=== PATIENT | male | born 1960 | race Caucasian/White ===

== ENCOUNTER 2021-03-02 10:50 | Inpatient (IN) | payer BC ==
[2021-03-02] MEDS ORDERED: SODIUM CHLORIDE 0.9% 1,000 ML IV STA (11:01)
[2021-03-02] MEDS ORDERED: ALBUTEROL HFA INHALER INHALATION STA (11:03)
--- NOTE | 2021-03-02 12:16 | XR ---
EXAMINATION TYPE: XR chest 2V DATE OF EXAM: 03/02/2021 COMPARISON: None HISTORY: 60 year-old male shortness of breath, difficulty breathing TECHNIQUE: AP and lateral views FINDINGS: Heart borderline enlarged. Diffuse bilateral airspace opacity, right greater than left. No pleural ef fusion. IMPRESSION: 1. Borderline cardiomegaly. 2. Diffuse bilateral airspace disease, right greater than left. No pleural effusion.
[2021-03-02 12:17] LABS: Basophils % (A) 0 %; Eosinophils % (A) 0 %; HCT 43.4 % (39.0-53.0); HGB 15.2 gm/dL (13.0-17.5); Hyperchromasia Slight; Lymphocytes # (A) 0.5 k/uL (1.0-4.8); Lymphocytes % (A) 5 %; MCH 28.3 pg (25.0-35.0); MCHC 34.9 g/dL (31.0-37.0); MCV 81.1 fL (80.0-100.0); Mean Platelet Volume 6.7; Monocytes # (A) 0.4 k/uL (0-1.0); Monocytes % (A) 5 %; Neutrophils # (A) 8.2 k/uL (1.3-7.7); Neutrophils % (A) 89 %; Platelet Count 177 k/uL (150-450); RBC 5.35 m/uL (4.30-5.90); RDW 12.4 % (11.5-15.5); WBC 9.2 k/uL (3.8-10.6)
--- NOTE | 2021-03-02 12:22 | ED ---
SOB HPI - General Chief Complaint: Shortness of Breath Stated Complaint: COVID+, SOB Time Seen by Provider: 03/02/21 11:00 Source: patient, EMS, RN notes reviewed Mode of arrival: EMS Limitations: no limitations - History of Present Illness Initial Comments: 60-year-old male who was diagnosed week ago with Covid 19 at the [facility] who presents by EMS with complaints of shortness of breath some delirium at home this morning. He had apparently a 55% pulse ox on room air and improved to about 85% on oxygen. Temperature 102 at home. Per paramedics his temperature is 100 today. He did have diminished breath sounds he also was apparently dusky per paramedics but is improved after improved oxygenation. The patient himself denies any chest pain at this time. MD Complaint: shortness of breath, cough - Related Data Home Medications Medication Instructions Recorded Confirmed No Known Home Medications 03/02/21 03/02/21 Allergies Allergy/AdvReac Type Severity Reaction Status Date / Time No Known Allergies Allergy Verified 03/02/21 11:53 Review of Systems ROS Statement: Those systems with pertinent positive or pertinent negative responses have been documented in the HPI. ROS Other: All systems not noted in ROS Statement are negative. Past Medical History Past Medical History: No Reported History History of Any Multi-Drug Resistant Organisms: None Reported Past Surgical History: Hernia Repair Past Psychological History: No Psychological Hx Reported Smoking Status: Former smoker Past Alcohol Use History: None Reported Past Drug Use History: None Reported General Exam - General Exam Comments Initial Comments: This is a well-developed well-nourished awake alert oriented 3 male Limitations: no limitations General appearance: alert, anxious, in distress Head exam: Present: atraumatic, normocephalic, normal inspection Eye exam: Present: normal appearance, PERRL, EOMI. Absent: scleral icterus, conjunctival injection, periorbital swelling ENT exam: Present: normal exam, mucous membranes moist Neck exam: Present: normal inspection, full ROM, other. Absent: tenderness, meningismus, lymphadenopathy Respiratory exam: Present: normal lung sounds bilaterally, wheezes, accessory muscle use (Stridor JVD or bruits some expiratory wheezes noted along with tachypnea). Absent: respiratory distress, rales, rhonchi, stridor Cardiovascular Exam: Present: regular rate, normal rhythm, normal heart sounds. Absent: systolic murmur, diastolic murmur, rubs, gallop, clicks GI/Abdominal exam: Present: soft, normal bowel sounds. Absent: distended, tenderness, guarding, rebound, rigid Extremities exam: Present: normal inspection, full ROM, normal capillary refill. Absent: tenderness, pedal edema, joint swelling, calf tenderness Back exam: Present: normal inspection Neurological exam: Present: alert, oriented X3, CN II-XII intact Psychiatric exam: Present: normal affect, normal mood Skin exam: Present: warm, dry, intact, normal color. Absent: rash Course Vital Signs 03/02/21 03/02/21 03/02/21 10:51 13:00 14:18 Temperature 99.7 F H Pulse Rate 91 95 118 H Respiratory 26 H 38 H 42 H Rate Blood Pressure 151/109 149/69 177/60 O2 Sat by Pulse 87 L 85 L 74 L Oximetry 03/02/21 14:46 Temperature Pulse Rate Respiratory Rate Blood Pressure O2 Sat by Pulse 52 L Oximetry - Reevaluation(s) Reevaluation #1: 03/02/21 15:17 Reevaluation the patient performed he did seem initially respond to oxygen by mask later he States somewhat a BiPAP will be initiated. CT is negative for PE. Medical Decision Making - Medical Decision Making I did discuss findings with Dr. Duarte as well as with Dr. Chavez. Patient will be admitted to the intensive care unit - Lab Data Result diagrams: 03/02/21 11:40 03/02/21 11:40 Lab Results 03/02/21 03/02/21 03/02/21 Range/Units 11:40 11:40 11:40 WBC 9.2 (3.8-10.6) k/uL RBC 5.35 (4.30-5.90) m/uL Hgb 15.2 (13.0-17.5) gm/dL Hct 43.4 (39.0-53.0) % MCV 81.1 (80.0-100.0) fL MCH 28.3 (25.0-35.0) pg MCHC 34.9 (31.0-37.0) g/dL RDW 12.4 (11.5-15.5) % Plt Count 177 (150-450) k/uL MPV 6.7 Neutrophils % 89 % Lymphocytes % 5 % Monocytes % 5 % Eosinophils % 0 % Basophils % 0 % Neutrophils # 8.2 H (1.3-7.7) k/uL Lymphocytes # 0.5 L (1.0-4.8) k/uL Monocytes # 0.4 (0-1.0) k/uL Eosinophils # 0.0 (0-0.7) k/uL Basophils # 0.0 (0-0.2) k/uL Manual Slide Review Performed RBC Morphology Normal Hyperchromasia Slight PT 10.2 (9.0-12.0) sec INR 0.9 (<1.2) APTT 25.5 (22.0-30.0) sec D-Dimer 1.67 H (<0.60) mg/L FEU Sodium 120 L (137-145) mmol/L Potassium 4.0 (3.5-5.1) mmol/L Chloride 88 L (98-107) mmol/L Carbon Dioxide 22 (22-30) mmol/L Anion Gap 10 mmol/L BUN 26 H (9-20) mg/dL Creatinine 0.95 (0.66-1.25) mg/dL Est GFR (CKD-EPI)AfAm >90 (>60 ml/min/1.73 sqM) Est GFR (CKD-EPI)NonAf 86 (>60 ml/min/1.73 sqM) Glucose 127 H (74-99) mg/dL Plasma Lactic Acid Benji (0.7-2.0) mmol/L Calcium 7.5 L (8.4-10.2) mg/dL Magnesium 2.0 (1.6-2.3) mg/dL Total Bilirubin 1.3 (0.2-1.3) mg/dL AST 149 H (17-59) U/L ALT 47 (4-49) U/L Alkaline Phosphatase 65 (38-126) U/L Lactate Dehydrogenase 3358 H (313-618) U/L Troponin I (0.000-0.034) ng/mL C-Reactive Protein 7.2 H (<1.0) mg/dL NT-Pro-B Natriuret Pep pg/mL Total Protein 6.5 (6.3-8.2) g/dL Albumin 3.5 (3.5-5.0) g/dL Influenza Type A (PCR) (Not Detectd) Influenza Type B (PCR) (Not Detectd) RSV (PCR) (Not Detectd) SARS-CoV-2 (PCR) (Not Detectd) 03/02/21 03/02/21 03/02/21 Range/Units 11:40 11:40 11:40 WBC (3.8-10.6) k/uL RBC (4.30-5.90) m/uL Hgb (13.0-17.5) gm/dL Hct (39.0-53.0) % MCV (80.0-100.0) fL MCH (25.0-35.0) pg MCHC (31.0-37.0) g/dL RDW (11.5-15.5) % Plt Count (150-450) k/uL MPV Neutrophils % % Lymphocytes % % Monocytes % % Eosinophils % % Basophils % % Neutrophils # (1.3-7.7) k/uL Lymphocytes # (1.0-4.8) k/uL Monocytes # (0-1.0) k/uL Eosinophils # (0-0.7) k/uL Basophils # (0-0.2) k/uL Manual Slide Review RBC Morphology Hyperchromasia PT (9.0-12.0) sec INR (<1.2) APTT (22.0-30.0) sec D-Dimer (<0.60) mg/L FEU Sodium (137-145) mmol/L Potassium (3.5-5.1) mmol/L Chloride (98-107) mmol/L Carbon Dioxide (22-30) mmol/L Anion Gap mmol/L BUN (9-20) mg/dL Creatinine (0.66-1.25) mg/dL Est GFR (CKD-EPI)AfAm (>60 ml/min/1.73 sqM) Est GFR (CKD-EPI)NonAf (>60 ml/min/1.73 sqM) Glucose (74-99) mg/dL Plasma Lactic Acid Benji 1.8 (0.7-2.0) mmol/L Calcium (8.4-10.2) mg/dL Magnesium (1.6-2.3) mg/dL Total Bilirubin (0.2-1.3) mg/dL AST (17-59) U/L ALT (4-49) U/L Alkaline Phosphatase (38-126) U/L Lactate Dehydrogenase (313-618) U/L Troponin I 0.110 H* (0.000-0.034) ng/mL C-Reactive Protein (<1.0) mg/dL NT-Pro-B Natriuret Pep 734 pg/mL Total Protein (6.3-8.2) g/dL Albumin (3.5-5.0) g/dL Influenza Type A (PCR) (Not Detectd) Influenza Type B (PCR) (Not Detectd) RSV (PCR) (Not Detectd) SARS-CoV-2 (PCR) (Not Detectd) 03/02/21 Range/Units 12:32 WBC (3.8-10.6) k/uL RBC (4.30-5.90) m/uL Hgb (13.0-17.5) gm/dL Hct (39.0-53.0) % MCV (80.0-100.0) fL MCH (25.0-35.0) pg MCHC (31.0-37.0) g/dL RDW (11.5-15.5) % Plt Count (150-450) k/uL MPV Neutrophils % % Lymphocytes % % Monocytes % % Eosinophils % % Basophils % % Neutrophils # (1.3-7.7) k/uL Lymphocytes # (1.0-4.8) k/uL Monocytes # (0-1.0) k/uL Eosinophils # (0-0.7) k/uL Basophils # (0-0.2) k/uL Manual Slide Review RBC Morphology Hyperchromasia PT (9.0-12.0) sec INR (<1.2) APTT (22.0-30.0) sec D-Dimer (<0.60) mg/L FEU Sodium (137-145) mmol/L Potassium (3.5-5.1) mmol/L Chloride (98-107) mmol/L Carbon Dioxide (22-30) mmol/L Anion Gap mmol/L BUN (9-20) mg/dL Creatinine (0.66-1.25) mg/dL Est GFR (CKD-EPI)AfAm (>60 ml/min/1.73 sqM) Est GFR (CKD-EPI)NonAf (>60 ml/min/1.73 sqM) Glucose (74-99) mg/dL Plasma Lactic Acid Benji (0.7-2.0) mmol/L Calcium (8.4-10.2) mg/dL Magnesium (1.6-2.3) mg/dL Total Bilirubin (0.2-1.3) mg/dL AST (17-59) U/L ALT (4-49) U/L Alkaline Phosphatase (38-126) U/L Lactate Dehydrogenase (313-618) U/L Troponin I (0.000-0.034) ng/mL C-Reactive Protein (<1.0) mg/dL NT-Pro-B Natriuret Pep pg/mL Total Protein (6.3-8.2) g/dL Albumin (3.5-5.0) g/dL Influenza Type A (PCR) Not Detected (Not Detectd) Influenza Type B (PCR) Not Detected (Not Detectd) RSV (PCR) Not Detected (Not Detectd) SARS-CoV-2 (PCR) Detected A (Not Detectd) - EKG Data -: EKG Interpreted by Nv EKG shows normal: sinus rhythm EKG Comments: Sinus rhythm rate of 97. Interval 144 QRS duration 110 QT since QTC 360/457 and complete right bundle-branch block - Radiology Data Radiology results: report reviewed (Imaging reviewed as well as report evidence of bilateral infiltrates more swelling right than the left CT negative for PE), image reviewed Critical Care Time Critical Care Time: Yes Total Critical Care Time: 39 Critical Care Time: Critical care time includes initial presentation with history physical labs x- rays discussed with paramedics upon arrival. Reevaluation patient responsive therapy discuss with the admitting physician discussed with the calibrator barometers admission orders documentation of the above Disposition Clinical Impression: Pneumonia due to COVID-19 virus, Hypoxemia, Hyponatremia syndrome, Failure of outpatient treatment, Bronchospasm Disposition: ADMITTED IP TO THIS [facility] Condition: Serious Referrals: Nonstaff,Physician [Primary Care Provider] - 1-2 days
[2021-03-02 12:32] LABS: ALT 47 U/L (4-49); AST 149 U/L (17-59); African American GFR (CKD) >90 (>60 ml/min/1.73 sqM); Albumin 3.5 g/dL (3.5-5.0); Alkaline Phosphatase 65 U/L (38-126); Anion Gap 10 mmol/L; Blood Urea Nitrogen 26 mg/dL (9-20); C Reactive Protein 7.2 mg/dL (<1.0); Calcium 7.5 mg/dL (8.4-10.2); Carbon Dioxide 22 mmol/L (22-30); Chloride 88 mmol/L (98-107); Glucose 127 mg/dL (74-99); Non-African American GFR(CKD) 86 (>60 ml/min/1.73 sqM); Sodium 120 mmol/L (137-145); Total Bilirubin 1.3 mg/dL (0.2-1.3); Total Protein 6.5 g/dL (6.3-8.2)
[2021-03-02 12:39] LABS: INR 0.9 (<1.2); Partial Thromboplastin Time 25.5 sec (22.0-30.0); Prothrombin Time 10.2 sec (9.0-12.0)
[2021-03-02 12:44] LABS: LDH 3358 U/L (313-618)
--- NOTE | 2021-03-02 14:32 | CT ---
CT CHEST FOR PULMONARY EMBOLISM. EXAMINATION TYPE: CT angio chest DATE OF EXAM: 03/02/2021 INDICATION: elevated d dimer, Covid positive CT DLP: 448.9 mGycm, Automated exposure control for dose reduction was used. CONTRAST: Patient injected with 100 mL of Isovue 370. COMPARISON: None TECHNIQUE: CT of the chest is performed on a spiral scan at 2 mm thick sections. Study is performed with intravenous contrast timed for evaluation for pulmonary embolism. Contrast opacification somewh at patchy causing some limitation on the evaluation. Smaller peripheral pulmonary emboli may not be v isualized. This will limit additional portions of the evaluation. 3-D MIP images reconstructed by huma technologist are reviewed on the computer in the coronal and sagittal planes. FINDINGS: No persistent filling defects are evident to suggest an acute pulmonary embolism. No mediastinal or hilar adenopathy enlarged by CT criteria is evident. The ascending aorta diameter at the level of the main pulmonary artery is 3.5 cm. The main pulmonary artery diameter at the bifur cation is 3.5 cm. Extensive patchy infiltrates and groundglass opacity is present to the bilateral lungs. Correlate for a typical pneumonia. Pulmonary edema and ARDS could be considered. Limited CT section through the upper abdomen are unremarkable. IMPRESSIONS: 1. No acute pulmonary embolism. 2. Advanced opacification to the bilateral lung lewis atypical pneumonia and ARDS.
[2021-03-02] MEDS ORDERED: LORazepam 2 MG/ML INJ IV STA (15:17)
[2021-03-02] MEDS ORDERED: NALOXONE 0.4 MG/ML 1 ML VIAL IV PRN ×2 (15:20→15:31)
--- NOTE | 2021-03-02 15:30 | ED ---
Medical Decision Making - Lab Data Result diagrams: 03/02/21 11:40 03/02/21 11:40 Lab Results 03/02/21 03/02/21 03/02/21 Range/Units 11:40 11:40 11:40 WBC 9.2 (3.8-10.6) k/uL RBC 5.35 (4.30-5.90) m/uL Hgb 15.2 (13.0-17.5) gm/dL Hct 43.4 (39.0-53.0) % MCV 81.1 (80.0-100.0) fL MCH 28.3 (25.0-35.0) pg MCHC 34.9 (31.0-37.0) g/dL RDW 12.4 (11.5-15.5) % Plt Count 177 (150-450) k/uL MPV 6.7 Neutrophils % 89 % Lymphocytes % 5 % Monocytes % 5 % Eosinophils % 0 % Basophils % 0 % Neutrophils # 8.2 H (1.3-7.7) k/uL Lymphocytes # 0.5 L (1.0-4.8) k/uL Monocytes # 0.4 (0-1.0) k/uL Eosinophils # 0.0 (0-0.7) k/uL Basophils # 0.0 (0-0.2) k/uL Manual Slide Review Performed RBC Morphology Normal Hyperchromasia Slight PT 10.2 (9.0-12.0) sec INR 0.9 (<1.2) APTT 25.5 (22.0-30.0) sec D-Dimer 1.67 H (<0.60) mg/L FEU Sodium 120 L (137-145) mmol/L Potassium 4.0 (3.5-5.1) mmol/L Chloride 88 L (98-107) mmol/L Carbon Dioxide 22 (22-30) mmol/L Anion Gap 10 mmol/L BUN 26 H (9-20) mg/dL Creatinine 0.95 (0.66-1.25) mg/dL Est GFR (CKD-EPI)AfAm >90 (>60 ml/min/1.73 sqM) Est GFR (CKD-EPI)NonAf 86 (>60 ml/min/1.73 sqM) Glucose 127 H (74-99) mg/dL Plasma Lactic Acid Benji (0.7-2.0) mmol/L Calcium 7.5 L (8.4-10.2) mg/dL Magnesium 2.0 (1.6-2.3) mg/dL Total Bilirubin 1.3 (0.2-1.3) mg/dL AST 149 H (17-59) U/L ALT 47 (4-49) U/L Alkaline Phosphatase 65 (38-126) U/L Lactate Dehydrogenase 3358 H (313-618) U/L Troponin I (0.000-0.034) ng/mL C-Reactive Protein 7.2 H (<1.0) mg/dL NT-Pro-B Natriuret Pep pg/mL Total Protein 6.5 (6.3-8.2) g/dL Albumin 3.5 (3.5-5.0) g/dL Influenza Type A (PCR) (Not Detectd) Influenza Type B (PCR) (Not Detectd) RSV (PCR) (Not Detectd) SARS-CoV-2 (PCR) (Not Detectd) 03/02/21 03/02/21 03/02/21 Range/Units 11:40 11:40 11:40 WBC (3.8-10.6) k/uL RBC (4.30-5.90) m/uL Hgb (13.0-17.5) gm/dL Hct (39.0-53.0) % MCV (80.0-100.0) fL MCH (25.0-35.0) pg MCHC (31.0-37.0) g/dL RDW (11.5-15.5) % Plt Count (150-450) k/uL MPV Neutrophils % % Lymphocytes % % Monocytes % % Eosinophils % % Basophils % % Neutrophils # (1.3-7.7) k/uL Lymphocytes # (1.0-4.8) k/uL Monocytes # (0-1.0) k/uL Eosinophils # (0-0.7) k/uL Basophils # (0-0.2) k/uL Manual Slide Review RBC Morphology Hyperchromasia PT (9.0-12.0) sec INR (<1.2) APTT (22.0-30.0) sec D-Dimer (<0.60) mg/L FEU Sodium (137-145) mmol/L Potassium (3.5-5.1) mmol/L Chloride (98-107) mmol/L Carbon Dioxide (22-30) mmol/L Anion Gap mmol/L BUN (9-20) mg/dL Creatinine (0.66-1.25) mg/dL Est GFR (CKD-EPI)AfAm (>60 ml/min/1.73 sqM) Est GFR (CKD-EPI)NonAf (>60 ml/min/1.73 sqM) Glucose (74-99) mg/dL Plasma Lactic Acid Benji 1.8 (0.7-2.0) mmol/L Calcium (8.4-10.2) mg/dL Magnesium (1.6-2.3) mg/dL Total Bilirubin (0.2-1.3) mg/dL AST (17-59) U/L ALT (4-49) U/L Alkaline Phosphatase (38-126) U/L Lactate Dehydrogenase (313-618) U/L Troponin I 0.110 H* (0.000-0.034) ng/mL C-Reactive Protein (<1.0) mg/dL NT-Pro-B Natriuret Pep 734 pg/mL Total Protein (6.3-8.2) g/dL Albumin (3.5-5.0) g/dL Influenza Type A (PCR) (Not Detectd) Influenza Type B (PCR) (Not Detectd) RSV (PCR) (Not Detectd) SARS-CoV-2 (PCR) (Not Detectd) 03/02/21 Range/Units 12:32 WBC (3.8-10.6) k/uL RBC (4.30-5.90) m/uL Hgb (13.0-17.5) gm/dL Hct (39.0-53.0) % MCV (80.0-100.0) fL MCH (25.0-35.0) pg MCHC (31.0-37.0) g/dL RDW (11.5-15.5) % Plt Count (150-450) k/uL MPV Neutrophils % % Lymphocytes % % Monocytes % % Eosinophils % % Basophils % % Neutrophils # (1.3-7.7) k/uL Lymphocytes # (1.0-4.8) k/uL Monocytes # (0-1.0) k/uL Eosinophils # (0-0.7) k/uL Basophils # (0-0.2) k/uL Manual Slide Review RBC Morphology Hyperchromasia PT (9.0-12.0) sec INR (<1.2) APTT (22.0-30.0) sec D-Dimer (<0.60) mg/L FEU Sodium (137-145) mmol/L Potassium (3.5-5.1) mmol/L Chloride (98-107) mmol/L Carbon Dioxide (22-30) mmol/L Anion Gap mmol/L BUN (9-20) mg/dL Creatinine (0.66-1.25) mg/dL Est GFR (CKD-EPI)AfAm (>60 ml/min/1.73 sqM) Est GFR (CKD-EPI)NonAf (>60 ml/min/1.73 sqM) Glucose (74-99) mg/dL Plasma Lactic Acid Benji (0.7-2.0) mmol/L Calcium (8.4-10.2) mg/dL Magnesium (1.6-2.3) mg/dL Total Bilirubin (0.2-1.3) mg/dL AST (17-59) U/L ALT (4-49) U/L Alkaline Phosphatase (38-126) U/L Lactate Dehydrogenase (313-618) U/L Troponin I (0.000-0.034) ng/mL C-Reactive Protein (<1.0) mg/dL NT-Pro-B Natriuret Pep pg/mL Total Protein (6.3-8.2) g/dL Albumin (3.5-5.0) g/dL Influenza Type A (PCR) Not Detected (Not Detectd) Influenza Type B (PCR) Not Detected (Not Detectd) RSV (PCR) Not Detected (Not Detectd) SARS-CoV-2 (PCR) Detected A (Not Detectd) Disposition Clinical Impression: Pneumonia due to COVID-19 virus, Hypoxemia, Hyponatremia syndrome, Failure of outpatient treatment, Bronchospasm Disposition: ADMITTED IP TO THIS [facility] Condition: Serious Referrals: Nonstaff,Physician [Primary Care Provider] - 1-2 days
[2021-03-02 16:11] LABS: ABG Base Excess -0.9 mmol/L; ABG HCO3 26 mmol/L (21-25); ABG Oxygen Saturation 81.4 % (94-97); ABG PCO2 54 mmHg (35-45); ABG PH 7.29 (7.35-7.45); ABG TCO2 27 mmol/L (19-24); Allen Test Performed? Yes
[2021-03-02 16:16] LABS: ABG PO2 53 mmHg (83-108)
[2021-03-02] MEDS ORDERED: CISATRACURIUM 2 MG/ML 5 ML VIAL IV ONE ×3 (17:09→20:03)
[2021-03-02] MEDS ORDERED: propofoL 100 ML IV ONE (17:09)
[2021-03-02] MEDS: SODIUM CHLORIDE 0.9% 1,000 ML IV SCH ×2 (17:15→23:51)
[2021-03-02] MEDS ORDERED: SUCCINYLCHOLINE CHLORIDE VIAL 200 MG/10 ML VIAL IV ONE (17:15)
[2021-03-02] MEDS ORDERED: ALBUTEROL HFA INHALER INHALATION SCH (18:00)
--- NOTE | 2021-03-02 18:52 | XR ---
EXAMINATION TYPE: XR chest 1V portable DATE OF EXAM: 03/02/2021 COMPARISON: 03/02/2021 HISTORY: 60 years Male. STUDY INDICATION GIVEN: ETT and OG placement . TECHNIQUE: Semiupright portable AP chest radiograph IMPRESSION: Again seen are diffuse bilateral interstitial and airspace opacities greater on the right with mild i mprovement. No significant pleural effusion or pneumothorax. Heart is mildly enlarged. The endotracheal tube tip is about 3.6 cm above michael. The oral gastric tube courses into the stomac h.
[2021-03-02 18:56] LABS: Basophils # (A) 0.1 k/uL (0-0.2); Basophils % (A) 1 %; Eosinophils % (A) 0 %; HCT 40.8 % (39.0-53.0); HGB 14.3 gm/dL (13.0-17.5); Lymphocytes # (A) 0.4 k/uL (1.0-4.8); Lymphocytes % (A) 3 %; MCH 28.8 pg (25.0-35.0); MCHC 35.1 g/dL (31.0-37.0); MCV 82.1 fL (80.0-100.0); Monocytes # (A) 0.7 k/uL (0-1.0); Monocytes % (A) 5 %; Neutrophils # (A) 11.2 k/uL (1.3-7.7); Neutrophils % (A) 90 %; Platelet Count 178 k/uL (150-450); RBC 4.96 m/uL (4.30-5.90); RDW 12.6 % (11.5-15.5); WBC 12.6 k/uL (3.8-10.6)
[2021-03-02 19:16] LABS: African American GFR (CKD) >90 (>60 ml/min/1.73 sqM); Anion Gap 5 mmol/L; Blood Urea Nitrogen 27 mg/dL (9-20); Calcium 6.7 mg/dL (8.4-10.2); Carbon Dioxide 22 mmol/L (22-30); Chloride 93 mmol/L (98-107); Glucose 147 mg/dL (74-99); Magnesium 2.1 mg/dL (1.6-2.3); Non-African American GFR(CKD) >90 (>60 ml/min/1.73 sqM); Sodium 120 mmol/L (137-145)
[2021-03-02 19:20] LABS: Potassium 5.7 mmol/L (3.5-5.1)
[2021-03-02 19:46] LABS: ABG Base Excess -0.4 mmol/L; ABG HCO3 25 mmol/L (21-25); ABG Oxygen Saturation 80.9 % (94-97); ABG PCO2 43 mmHg (35-45); ABG PH 7.38 (7.35-7.45); ABG TCO2 26 mmol/L (19-24); Allen Test Performed? Yes
[2021-03-02 19:49] LABS: ABG PO2 47 mmHg (83-108)
[2021-03-02] MEDS ORDERED: IPRATROPIUM-ALBUTEROL 3 ML NEB INHALATION PRN (20:01)
[2021-03-02] MEDS: NOREPINEPHRINE 4 MG in SODIUM CHLORIDE 0.9% 250 ML IV SCH (20:06)
[2021-03-02] MEDS: CISATRACURIUM 200 MG in SODIUM CHLORIDE 0.9% 180 ML IV SCH (20:42)
[2021-03-02 20:55] LABS: Appearance,Urine Cloudy (Clear); Bilirubin,Urine Negative (Negative); Blood,Urine Large (Negative); Color,Urine Yellow; Glucose,Urine (UA) Negative (Negative); Hyaline Casts,Urine 1 /lpf (0-2); Ketones,Urine Negative (Negative); Leukocyte Esterase,Urine Negative (Negative); Mucus,Urine Occasional /hpf; Nitrite,Urine Negative (Negative); Protein,Urine 2+ (Negative); RBC,Urine 46 /hpf (0-5); Squamous Epithelial Cell,Urine 1 /hpf (0-4); Urobilinogen,Urine <2.0 mg/dL (<2.0); WBC,Urine 14 /hpf (0-5)
[2021-03-02] MEDS: CHLORHEXIDINE GLUCONATE 15 ML CUP MUCOUS MEM SCH (22:01)
[2021-03-03] MEDS ORDERED: IPRATROPIUM-ALBUTEROL 3 ML NEB INHALATION SCH
[2021-03-03 00:15] LABS: Glucose,Whole Blood 125 mg/dL (75-99)
--- NOTE | 2021-03-03 00:28 | P.HPIM ---
History of Present Illness H&P Date: 03/02/21 Chief Complaint: Shortness of breath and confusion Patient is a 60-year-old male without significant past medical history except prior smoking presents to ER with complaints of worsening shortness of breath and altered mental status. Patient was brought to the hospital by EMS. Patient was found to be hypoxic with pulse ox 55% on room air and improved to 85% on oxygen. T-max was 102 F as per EMS. Patient is confused and could not provide any history at this time. BiPAP when she was in the ER. On admission blood pressure 151/109 pulse 91 T- max 99.7 and pulse ox 87% on 100% nonrebreather. Chest x-ray showed borderline cardiomegaly. Diffuse bilateral airspace disease. Right greater than left. No pleural effusion. CT angiogram of the chest was done due to elevated D-dimer level. No acute pulmonary embolism. Advanced opacification of the bilateral lung lewis atypical pneumonia and ARDS. Laboratory showed WBC 9.2 hemoglobin 15.2, platelets 177 lymphocytes 0.5 D-dimer 1.67 ABG showed pH of 7.29, PCO2 54 PO2 53 Sodium 120 potassium 4.0 chloride 88 BUN 26 and creatinine 0.95, calcium 7.5 lactic acid 1.8 Troponin 0 0.110 proBNP 734, LDH 3358, CRP 7.2, coronavirus PCR detected. Review of Systems Review of systems could not be obtained at this time Past Medical History Past Medical History: No Reported History History of Any Multi-Drug Resistant Organisms: None Reported Past Surgical History: Hernia Repair Past Psychological History: No Psychological Hx Reported Smoking Status: Former smoker Past Alcohol Use History: None Reported Past Drug Use History: None Reported Medications and Allergies Home Medications Medication Instructions Recorded Confirmed Type No Known Home Medications 03/02/21 03/02/21 History Allergies Allergy/AdvReac Type Severity Reaction Status Date / Time No Known Allergies Allergy Verified 03/02/21 11:53 Physical Exam Vitals: Vital Signs Temp Pulse Resp BP Pulse Ox 03/02/21 21:00 92 24 101/71 94 L 03/02/21 20:50 93 35 H 101/71 89 L 03/02/21 20:40 93 29 H 92/66 89 L 03/02/21 20:30 92 29 H 93/64 89 L 03/02/21 20:20 91 32 H 93/64 88 L 03/02/21 20:10 88 28 H 78/51 87 L 03/02/21 20:00 98.9 F 95 33 H 86/61 82 L 03/02/21 19:50 96 30 H 84/58 82 L 03/02/21 19:40 93 37 H 79/58 81 L 03/02/21 19:30 103 H 31 H 92/62 82 L 03/02/21 19:20 101 H 34 H 96/64 82 L 03/02/21 19:10 101 H 32 H 92/63 82 L 03/02/21 19:00 101 H 34 H 86/62 82 L 03/02/21 18:50 103 H 34 H 92/65 83 L 03/02/21 18:40 99 34 H 89/48 84 L 03/02/21 18:30 101 H 33 H 119/78 82 L 03/02/21 18:20 102 H 31 H 119/76 85 L 03/02/21 18:10 105 H 24 124/78 85 L 03/02/21 18:00 105 H 24 122/75 84 L 03/02/21 17:50 103 H 24 120/75 82 L 03/02/21 17:40 110 H 24 153/82 74 L 03/02/21 17:30 111 H 5 L 183/94 66 L 03/02/21 17:20 111 H 49 H 164/56 84 L 03/02/21 17:10 112 H 57 H 151/88 88 L 03/02/21 17:00 112 H 60 H 165/91 86 L 03/02/21 16:50 113 H 59 H 178/91 86 L 03/02/21 16:40 112 H 60 H 178/91 84 L 03/02/21 16:32 114 H 44 H 79 L 03/02/21 15:47 117 H 56 H 195/93 80 L 03/02/21 15:13 109 H 38 H 79 L 03/02/21 15:00 105 H 38 H 201/85 85 L 03/02/21 14:46 52 L 03/02/21 14:18 118 H 42 H 177/60 74 L 03/02/21 13:00 95 38 H 149/69 85 L 03/02/21 10:51 99.7 F H 91 26 H 151/109 87 L Intake and Output 1103/02/21 03/02/21 06:59 14:59 22:59 Intake Total 566.658 Output Total 380 Balance 186.658 Intake: IV 520 Sodium Chloride 0.9% 1, 520 000 ml @ 130 mls/hr IV . Q7H42M [facility] Rx#:[id number] Intake, IV Titration 46.658 Amount Norepinephrine 4 mg In 28.083 Sodium Chloride 0.9% 250 ml @ 0.05 MCG/KG/MIN 16. 85 mls/hr IV .Q15H5M [facility] Rx#:[id number] propofoL 1,000 mg In 18.575 Empty Bag 1 bag @ Titrate IV .Q0M [facility] Rx#: [id number] Output: Urine 380 Other: Weight 88.451 kg PHYSICAL EXAMINATION: Patient is currently in respiratory distress and confused and disoriented.. HEENT: Normocephalic. Neck is supple. Pupils reactive. Nostrils clear. Oral cavity is moist. Neck reveals no JVD, carotid bruits, or thyromegaly. CHEST EXAMINATION: Trachea is central. Symmetrical expansion. Bilateral diminished air entry and diffuse coarse sounds. Using accessory muscles. On BiPAP. CARDIAC: Normal S1, S2 with no gallops. No murmurs ABDOMEN: Soft. Bowel sounds normal. No organomegaly. No abdominal bruits. Extremities: reveal no edema. No clubbing or cyanosis Neurologically Patient is awake alert but confused disoriented and able to move extremities while in bed. No gross focal neurological deficit. Skin: No rash or skin lesions. Psychiatric: Could not be assessed at this time. Musculoskeletal: No joint swelling or deformity. Results CBC & Chem 7: 03/02/21 18:49 03/02/21 18:49 Labs: Abnormal Lab Results - Last 24 Hours (Table) 03/02/21 03/02/21 03/02/21 Range/Units 11:40 11:40 11:40 WBC (3.8-10.6) k/uL Neutrophils # 8.2 H (1.3-7.7) k/uL Lymphocytes # 0.5 L (1.0-4.8) k/uL D-Dimer 1.67 H (<0.60) mg/L FEU ABG pH (7.35-7.45) ABG pCO2 (35-45) mmHg ABG pO2 (83-108) mmHg ABG HCO3 (21-25) mmol/L ABG Total CO2 (19-24) mmol/L ABG O2 Saturation (94-97) % Sodium 120 L (137-145) mmol/L Potassium (3.5-5.1) mmol/L Chloride 88 L (98-107) mmol/L BUN 26 H (9-20) mg/dL Glucose 127 H (74-99) mg/dL Calcium 7.5 L (8.4-10.2) mg/dL AST 149 H (17-59) U/L Lactate Dehydrogenase 3358 H (313-618) U/L Troponin I (0.000-0.034) ng/mL C-Reactive Protein 7.2 H (<1.0) mg/dL Ur Specific [place] (1.001-1.035) Urine Protein (Negative) Urine Blood (Negative) Urine RBC (0-5) /hpf Urine WBC (0-5) /hpf Urine Mucus (None) /hpf SARS-CoV-2 (PCR) (Not Detectd) 03/02/21 03/02/21 03/02/21 Range/Units 11:40 12:32 16:02 WBC (3.8-10.6) k/uL Neutrophils # (1.3-7.7) k/uL Lymphocytes # (1.0-4.8) k/uL D-Dimer (<0.60) mg/L FEU ABG pH 7.29 L (7.35-7.45) ABG pCO2 54 H (35-45) mmHg ABG pO2 53 L* (83-108) mmHg ABG HCO3 26 H (21-25) mmol/L ABG Total CO2 27 H (19-24) mmol/L ABG O2 Saturation 81.4 L (94-97) % Sodium (137-145) mmol/L Potassium (3.5-5.1) mmol/L Chloride (98-107) mmol/L BUN (9-20) mg/dL Glucose (74-99) mg/dL Calcium (8.4-10.2) mg/dL AST (17-59) U/L Lactate Dehydrogenase (313-618) U/L Troponin I 0.110 H* (0.000-0.034) ng/mL C-Reactive Protein (<1.0) mg/dL Ur Specific [place] (1.001-1.035) Urine Protein (Negative) Urine Blood (Negative) Urine RBC (0-5) /hpf Urine WBC (0-5) /hpf Urine Mucus (None) /hpf SARS-CoV-2 (PCR) Detected A (Not Detectd) 03/02/21 03/02/21 03/02/21 Range/Units 18:49 18:49 19:43 WBC 12.6 H (3.8-10.6) k/uL Neutrophils # 11.2 H (1.3-7.7) k/uL Lymphocytes # 0.4 L (1.0-4.8) k/uL D-Dimer (<0.60) mg/L FEU ABG pH (7.35-7.45) ABG pCO2 (35-45) mmHg ABG pO2 47 L* (83-108) mmHg ABG HCO3 (21-25) mmol/L ABG Total CO2 26 H (19-24) mmol/L ABG O2 Saturation 80.9 L (94-97) % Sodium 120 L (137-145) mmol/L Potassium 5.7 H (3.5-5.1) mmol/L Chloride 93 L (98-107) mmol/L BUN 27 H (9-20) mg/dL Glucose 147 H (74-99) mg/dL Calcium 6.7 L (8.4-10.2) mg/dL AST (17-59) U/L Lactate Dehydrogenase (313-618) U/L Troponin I (0.000-0.034) ng/mL C-Reactive Protein (<1.0) mg/dL Ur Specific [place] (1.001-1.035) Urine Protein (Negative) Urine Blood (Negative) Urine RBC (0-5) /hpf Urine WBC (0-5) /hpf Urine Mucus (None) /hpf SARS-CoV-2 (PCR) (Not Detectd) 03/02/21 Range/Units 20:25 WBC (3.8-10.6) k/uL Neutrophils # (1.3-7.7) k/uL Lymphocytes # (1.0-4.8) k/uL D-Dimer (<0.60) mg/L FEU ABG pH (7.35-7.45) ABG pCO2 (35-45) mmHg ABG pO2 (83-108) mmHg ABG HCO3 (21-25) mmol/L ABG Total CO2 (19-24) mmol/L ABG O2 Saturation (94-97) % Sodium (137-145) mmol/L Potassium (3.5-5.1) mmol/L Chloride (98-107) mmol/L BUN (9-20) mg/dL Glucose (74-99) mg/dL Calcium (8.4-10.2) mg/dL AST (17-59) U/L Lactate Dehydrogenase (313-618) U/L Troponin I (0.000-0.034) ng/mL C-Reactive Protein (<1.0) mg/dL Ur Specific [place] 1.050 H (1.001-1.035) Urine Protein 2+ H (Negative) Urine Blood Large H (Negative) Urine RBC 46 H (0-5) /hpf Urine WBC 14 H (0-5) /hpf Urine Mucus Occasional H (None) /hpf SARS-CoV-2 (PCR) (Not Detectd) Thrombosis Risk Factor Assmnt - DVT/VTE Prophylaxis DVT/VTE Prophylaxis: Pharmacologic Prophylaxis ordered Assessment and Plan Assessment: Acute hypoxic respiratory failure secondary to COVID-19 pneumonia. Patient was tested positive about a week ago. Currently requiring BiPAP Altered mental status/metabolic encephalopathy Elevated inflammatory markers secondary to COVID-19 pneumonia Hyponatremia likely due to volume depletion/hypoosmolar Mild elevated troponin level likely ischemia DVT prophylaxis with Lovenox Plan: Patient will be continued BiPAP and albuterol/ipratropium inhalation. Continue with IV hydration and monitor electrolytes. Patient is being transferred to MICU for close monitoring and patient may need to be intubated. Critical care team was already consulted. Prognosis guarded at this time. Time with Patient: Greater than 30
[2021-03-03] MEDS ORDERED: ALBUTEROL HFA INHALER INHALATION PRN (00:36)
[2021-03-03] MEDS: DEXAMETHASONE SOD PHOSPHATE 10 MG/ML 1 ML VIAL IVP SCH ×2 (01:08→10:28)
[2021-03-03] MEDS: ALBUTEROL HFA INHALER INHALATION SCH ×5 (04:27→20:13)
[2021-03-03 05:02] LABS: Basophils % (A) 0 %; Eosinophils % (A) 0 %; HCT 42.7 % (39.0-53.0); HGB 14.5 gm/dL (13.0-17.5); Lymphocytes # (A) 0.7 k/uL (1.0-4.8); Lymphocytes % (A) 4 %; MCH 28.6 pg (25.0-35.0); MCHC 33.9 g/dL (31.0-37.0); MCV 84.3 fL (80.0-100.0); Mean Platelet Volume 6.5; Monocytes # (A) 0.7 k/uL (0-1.0); Monocytes % (A) 4 %; Neutrophils # (A) 14.2 k/uL (1.3-7.7); Neutrophils % (A) 90 %; Platelet Count 187 k/uL (150-450); RBC 5.07 m/uL (4.30-5.90); WBC 15.7 k/uL (3.8-10.6)
[2021-03-03 05:16] LABS: African American GFR (CKD) >90 (>60 ml/min/1.73 sqM); Anion Gap 3 mmol/L; Blood Urea Nitrogen 21 mg/dL (9-20); Calcium 6.7 mg/dL (8.4-10.2); Carbon Dioxide 25 mmol/L (22-30); Chloride 97 mmol/L (98-107); Glucose 140 mg/dL (74-99); Non-African American GFR(CKD) >90 (>60 ml/min/1.73 sqM); Potassium 4.9 mmol/L (3.5-5.1); Sodium 125 mmol/L (137-145)
[2021-03-03 06:05] LABS: Glucose,Whole Blood 134 mg/dL (75-99)
[2021-03-03] MEDS: SODIUM CHLORIDE 0.9% 1,000 ML IV SCH ×3 (07:05→21:06)
--- NOTE | 2021-03-03 08:04 | XR ---
EXAMINATION TYPE: XR chest 1V portable DATE OF EXAM: 03/03/2021 Comparison: 03/02/2021 Clinical History: 60-year-old male Tube placement Findings: ET and NG tubes are satisfactory. Heart borderline enlarged. Bilateral airspace disease, right and le ft is similar to minimally less confluent. No pleural effusion. Impression: Extensive bilateral, right greater than left, airspace disease relatively similar. There may be sligh t improvement on the left.
[2021-03-03 08:27] LABS: ABG Base Excess -1.2 mmol/L; ABG HCO3 26 mmol/L (21-25); ABG PCO2 63 mmHg (35-45); ABG PH 7.23 (7.35-7.45); ABG PO2 220 mmHg (83-108); ABG TCO2 28 mmol/L (19-24)
[2021-03-03 08:30] LABS: Allen Test Performed? yes
[2021-03-03] MEDS: CHLORHEXIDINE GLUCONATE 15 ML CUP MUCOUS MEM SCH ×3 (10:27→21:06)
[2021-03-03] MEDS: CHOLECALCIFEROL 25 MCG (1000 IU) TABLET PO SCH (10:27)
[2021-03-03] MEDS: PANTOPRAZOLE 40 MG/10 ML VIAL IV SCH (10:27)
[2021-03-03] MEDS: NOREPINEPHRINE 4 MG in SODIUM CHLORIDE 0.9% 250 ML IV SCH (10:27)
[2021-03-03] MEDS: ASCORBIC ACID 500 MG TAB PO SCH (10:27)
[2021-03-03] MEDS: ENOXAPARIN 40 MG/0.4 ML SYRINGE SQ SCH (10:27)
[2021-03-03] MEDS: ZINC SULFATE 220 MG CAP PO SCH (10:27)
--- NOTE | 2021-03-03 11:16 | P.CNPUL ---
History of Present Illness Consult date: 03/03/21 Requesting physician: Socorro Duarte Reason for consult: dyspnea, cough, hypoxemia, pneumonia, abnormal CXR/CT Chief complaint: Shortness of breath. History of present illness: Pulmonary/critical care consult dated 03/03/2021. 60-year-old male, who presented to the emergency department yesterday, March 02, and was seen by Dr. Lott in the ER. The patient came in with complaints of shortness of breath. Apparently, the patient was diagnosed as having coronavirus infection about one week ago, at the [facility]. The patient presents via EMS, to our emergency room, with increasing shortness of breath, and mental status changes. Apparently, his saturations range from a nywhere from 85% to 55%. His temperature was 102. The patient was taken to the ER, where he was evaluated. The patient was thought to be a good candidate for the ICU. I was called multiple times by nurses and doctors in the emergency room about this patient. I suggested the patient should be intubated in the emergency room department, but the ER physician had ready left for the day, so I ended up sending the patient to the intensive care unit right away, and the patient required intubation. Currently, the patient is on the volume assist control mode, rate 24, tidal volume 450, FiO2 70%, and PEEP of 15. Arterial blood gases done on 100% showed pO2 220, pCO2 of 63, and a pH is 7.23. The FiO2 was reduced to 70%. The patient is on Nimbex at 2 mcg/kg/m, propofol at 50 mcg/kg/m, saline at 130 mL an hour, and tube feedings will be started today. Labs today include a white count 15.7, hemoglobin 14.5, hematocrit platelet count of 187,000. Sodium 125, potassium 4.9, chlorides 97, CO2 25, anion gap 3, BUN 21, creatinine 0.82. Urine is yellow and cloudy with 2+ protein, large amount of blood, and 14 WBCs. No bacteria. Chest x-ray shows diffuse bilateral infiltrates, and CAT scan was negative for pulmonary embolism, but did show typical pattern for coronavirus associated pneumonia. A left internal jugular triple-lumen catheter and a right radial art line was placed by my team today. Review of Systems REVIEW OF SYSTEMS: CONSTITUTIONAL: Fever and weakness. NEUROLOGIC: [ Negative.] HEENT: [ Negative.] CARDIAC: [Negative.] PULMONARY: Shortness of breath. GI: [Negative.] : [Negative.] RHEUMATOLOGIC: [ Negative.] IMMUNOLOGIC: [ Negative.] ENDOCRINE: [Negative. ] DERMATOLOGIC: [Negative.] Past Medical History Past Medical History: No Reported History History of Any Multi-Drug Resistant Organisms: None Reported Past Surgical History: Hernia Repair Past Psychological History: No Psychological Hx Reported Smoking Status: Former smoker Past Alcohol Use History: None Reported Past Drug Use History: None Reported Medications and Allergies Home Medications Medication Instructions Recorded Confirmed Type No Known Home Medications 03/02/21 03/02/21 History Allergies Allergy/AdvReac Type Severity Reaction Status Date / Time No Known Allergies Allergy Verified 03/02/21 11:53 Physical Exam Osteopathic Statement: *. No significant issues noted on an osteopathic structural exam other than those noted in the History and Physical/Consult. Vitals: Vital Signs Temp Pulse Resp BP Pulse Ox 03/03/21 10:00 84 24 106/62 93 L 03/03/21 09:00 79 25 H 108/63 96 03/03/21 08:00 81 0 L 99/61 97 03/03/21 07:00 80 24 100/63 97 03/03/21 06:45 81 24 101/62 97 03/03/21 06:30 80 24 109/61 96 03/03/21 06:15 83 24 105/61 97 03/03/21 06:00 81 24 103/60 97 03/03/21 05:45 81 24 103/63 96 03/03/21 05:30 81 24 105/60 97 03/03/21 05:15 84 24 102/57 97 03/03/21 05:00 84 24 106/60 97 03/03/21 04:45 85 24 86/55 97 03/03/21 04:30 83 24 105/59 96 03/03/21 04:15 84 24 103/62 96 03/03/21 04:00 97.9 F 83 24 105/61 96 03/03/21 03:45 85 24 107/59 96 03/03/21 03:30 85 24 104/58 96 03/03/21 03:15 84 24 95/60 96 03/03/21 03:00 83 24 113/76 95 03/03/21 02:45 86 24 112/65 95 03/03/21 02:30 85 24 110/66 95 03/03/21 02:15 87 24 110/64 95 03/03/21 02:00 86 24 108/63 95 03/03/21 01:45 86 24 108/63 95 03/03/21 01:30 89 24 107/65 95 03/03/21 01:15 90 24 108/64 95 03/03/21 01:00 89 24 114/63 95 03/03/21 00:45 87 24 106/62 94 L 03/03/21 00:30 90 24 108/68 95 03/03/21 00:23 86 24 108/68 95 03/03/21 00:15 88 24 115/63 95 03/03/21 00:00 98 F 86 24 110/63 95 03/02/21 23:45 89 24 105/64 95 03/02/21 23:30 89 24 109/68 95 03/02/21 23:15 86 24 112/67 95 03/02/21 23:00 86 24 113/67 95 03/02/21 22:45 92 24 110/66 95 03/02/21 22:30 90 24 103/69 95 03/02/21 22:15 90 24 116/66 95 03/02/21 22:00 93 24 112/69 95 03/02/21 21:45 95 24 115/72 95 03/02/21 21:30 93 24 116/72 96 03/02/21 21:15 93 24 114/76 95 03/02/21 21:00 92 24 101/71 94 L 03/02/21 20:50 93 35 H 101/71 89 L 03/02/21 20:40 93 29 H 92/66 89 L 03/02/21 20:30 92 29 H 93/64 89 L 03/02/21 20:20 91 32 H 93/64 88 L 03/02/21 20:10 88 28 H 78/51 87 L 03/02/21 20:00 98.9 F 95 33 H 86/61 82 L 03/02/21 19:50 96 30 H 84/58 82 L 03/02/21 19:40 93 37 H 79/58 81 L 03/02/21 19:30 103 H 31 H 92/62 82 L 03/02/21 19:20 101 H 34 H 96/64 82 L 03/02/21 19:10 101 H 32 H 92/63 82 L 03/02/21 19:00 101 H 34 H 86/62 82 L 03/02/21 18:50 103 H 34 H 92/65 83 L 03/02/21 18:40 99 34 H 89/48 84 L 03/02/21 18:30 101 H 33 H 119/78 82 L 03/02/21 18:20 102 H 31 H 119/76 85 L 03/02/21 18:10 105 H 24 124/78 85 L 03/02/21 18:00 105 H 24 122/75 84 L 03/02/21 17:50 103 H 24 120/75 82 L 03/02/21 17:40 110 H 24 153/82 74 L 03/02/21 17:30 111 H 5 L 183/94 66 L 03/02/21 17:20 111 H 49 H 164/56 84 L 03/02/21 17:10 112 H 57 H 151/88 88 L 03/02/21 17:00 112 H 60 H 165/91 86 L 03/02/21 16:50 113 H 59 H 178/91 86 L 03/02/21 16:40 112 H 60 H 178/91 84 L 03/02/21 16:32 114 H 44 H 79 L 03/02/21 15:47 117 H 56 H 195/93 80 L 03/02/21 15:13 109 H 38 H 79 L 03/02/21 15:00 105 H 38 H 201/85 85 L 03/02/21 14:46 52 L 03/02/21 14:18 118 H 42 H 177/60 74 L 03/02/21 13:00 95 38 H 149/69 85 L Intake and Output 03/02/21 03/03/21 03/03/21 22:59 06:59 14:59 Intake Total 952.849 5498.164 619.949 Output Total 505 625 295 Balance 191.658 646.164 324.949 Intake: IV 650 1040 520 Sodium Chloride 0.9% 1, 650 1040 520 000 ml @ 130 mls/hr IV . Q7H42M [facility] Rx#:[id number] Intake, IV Titration 46.658 231.164 99.949 Amount Norepinephrine 4 mg In 28.083 54.706 Sodium Chloride 0.9% 250 ml @ 0.05 MCG/KG/MIN 16. 85 mls/hr IV .Q15H5M [facility] Rx#:[id number] propofoL 1,000 mg In 18.575 176.458 99.949 Empty Bag 1 bag @ Titrate IV .Q0M [facility] Rx#: [id number] Output: Urine 505 625 295 Other: Voiding Method Indwelling Catheter Indwelling Catheter Indwelling Catheter Weight 92.6 kg 92.6 kg Sedated, and paralyzed, with an orally placed endotracheal tube and NG tube. HEENT examination is grossly unremarkable. Neck supple. Full range of motion. No adenopathy thyromegaly or neck vein distention. Cardiovascular examination reveals regular rhythm rate. S1-S2 normal. No S3 or S4. No discernible murmur noted. Heart rate 84 bpm. Lungs reveal diffuse bilateral rhonchi. No wheezes or crackles. Breath sounds equal bilaterally. Abdomen soft without bowel sounds. No masses or tenderness. Extremities are intact. No cyanosis clubbing or edema. Skin is without rash or lesion. Neurologic examination cannot be adequately assessed as the patient sedated and paralyzed. Results - Laboratory Findings CBC and BMP: 03/03/21 04:46 03/03/21 04:46 ABG ABG pH 7.23 (7.35-7.45) L 03/03/21 08:24 ABG pCO2 63 mmHg (35-45) H 03/03/21 08:24 ABG pO2 220 mmHg (83-108) H 03/03/21 08:24 ABG O2 Saturation 100.0 % (94-97) H 03/03/21 08:24 PT/INR, D-dimer PT 10.2 sec (9.0-12.0) 03/02/21 11:40 INR 0.9 (<1.2) 03/02/21 11:40 D-Dimer 1.67 mg/L FEU (<0.60) H 03/02/21 11:40 Abnormal lab findings: Abnormal Labs 03/02/21 03/02/21 03/02/21 11:40 11:40 11:40 WBC Neutrophils # 8.2 H Lymphocytes # 0.5 L D-Dimer 1.67 H ABG pH ABG pCO2 ABG pO2 ABG HCO3 ABG Total CO2 ABG O2 Saturation Sodium 120 L Potassium Chloride 88 L BUN 26 H Glucose 127 H POC Glucose (mg/dL) Calcium 7.5 L Ferritin 4403.0 H AST 149 H Lactate Dehydrogenase 3358 H Troponin I C-Reactive Protein 7.2 H Procalcitonin Ur Specific [place] Urine Protein Urine Blood Urine RBC Urine WBC Urine Mucus SARS-CoV-2 (PCR) 03/02/21 03/02/21 03/02/21 11:40 11:40 12:32 WBC Neutrophils # Lymphocytes # D-Dimer ABG pH ABG pCO2 ABG pO2 ABG HCO3 ABG Total CO2 ABG O2 Saturation Sodium Potassium Chloride BUN Glucose POC Glucose (mg/dL) Calcium Ferritin AST Lactate Dehydrogenase Troponin I 0.110 H* C-Reactive Protein Procalcitonin 0.35 H Ur Specific [place] Urine Protein Urine Blood Urine RBC Urine WBC Urine Mucus SARS-CoV-2 (PCR) Detected A 03/02/21 03/02/21 03/02/21 16:02 18:49 18:49 WBC 12.6 H Neutrophils # 11.2 H Lymphocytes # 0.4 L D-Dimer ABG pH 7.29 L ABG pCO2 54 H ABG pO2 53 L* ABG HCO3 26 H ABG Total CO2 27 H ABG O2 Saturation 81.4 L Sodium 120 L Potassium 5.7 H Chloride 93 L BUN 27 H Glucose 147 H POC Glucose (mg/dL) Calcium 6.7 L Ferritin AST Lactate Dehydrogenase Troponin I C-Reactive Protein Procalcitonin Ur Specific [place] Urine Protein Urine Blood Urine RBC Urine WBC Urine Mucus SARS-CoV-2 (PCR) 03/02/21 03/02/21 03/03/21 19:43 20:25 00:13 WBC Neutrophils # Lymphocytes # D-Dimer ABG pH ABG pCO2 ABG pO2 47 L* ABG HCO3 ABG Total CO2 26 H ABG O2 Saturation 80.9 L Sodium Potassium Chloride BUN Glucose POC Glucose (mg/dL) 125 H Calcium Ferritin AST Lactate Dehydrogenase Troponin I C-Reactive Protein Procalcitonin Ur Specific [place] 1.050 H Urine Protein 2+ H Urine Blood Large H Urine RBC 46 H Urine WBC 14 H Urine Mucus Occasional H SARS-CoV-2 (PCR) 03/03/21 03/03/21 03/03/21 04:46 04:46 06:03 WBC 15.7 H Neutrophils # 14.2 H Lymphocytes # 0.7 L D-Dimer ABG pH ABG pCO2 ABG pO2 ABG HCO3 ABG Total CO2 ABG O2 Saturation Sodium 125 L Potassium Chloride 97 L BUN 21 H Glucose 140 H POC Glucose (mg/dL) 134 H Calcium 6.7 L Ferritin AST Lactate Dehydrogenase Troponin I C-Reactive Protein Procalcitonin Ur Specific [place] Urine Protein Urine Blood Urine RBC Urine WBC Urine Mucus SARS-CoV-2 (PCR) 03/03/21 08:24 WBC Neutrophils # Lymphocytes # D-Dimer ABG pH 7.23 L ABG pCO2 63 H ABG pO2 220 H ABG HCO3 26 H ABG Total CO2 28 H ABG O2 Saturation 100.0 H Sodium Potassium Chloride BUN Glucose POC Glucose (mg/dL) Calcium Ferritin AST Lactate Dehydrogenase Troponin I C-Reactive Protein Procalcitonin Ur Specific [place] Urine Protein Urine Blood Urine RBC Urine WBC Urine Mucus SARS-CoV-2 (PCR) - Diagnostic Findings Chest x-ray: image reviewed CT scan - chest: image reviewed Assessment and Plan Assessment: Acute hypoxemic respiratory failure secondary to coronavirus associated pne umonia, status post intubation and mechanical ventilation on 03/02/2021. Elevated inflammatory marker secondary to coronavirus infection. History of hyponatremia. Previous history of hernia repair. History of tobacco use. Plan: Plan dated 03/03/2021. The patient is seen in the intensive care unit. A central line and arterial line placed by my team. The patient's medications are reviewed. Prognosis is very guarded. The FiO2 on the ventilator is reduced from 100% to 70%. Labs and x-rays are ordered for the morning. The patient will need a blood gas in the morning. Tube feedings will be started. The patient is a candidate for vitamins, Lovenox, and Decadron. The CT angiogram did not show pulmonary embolism. Additional recommendations and suggestions are forthcoming. Prognosis is guarded. Time with Patient: Greater than 30
[2021-03-03 12:23] LABS: Glucose,Whole Blood 157 mg/dL (75-99)
--- NOTE | 2021-03-03 13:39 | PCN ---
PROCEDURE NOTE PULMONARY/CRITICAL CARE PROCEDURE NOTE: PROCEDURE PERFORMED: Left internal jugular triple-lumen catheter. TRIPLE LUMEN CATHETER PLACEMENT: Indication: Hemodynamic monitoring/Intravenous access. SAFETY ATTENDANT: Dr. Chavez, Dr. Cox and Dr. Puri. PREOP DIAGNOSIS: Administration of fluids and pressors. POSTOP DIAGNOSIS: Administration of fluids and pressors. A time-out was completed verifying correct patient, procedure, site, positioning, and implant(s) or special equipment if applicable. The patient was placed in a dependent position appropriate for triple lumen catheter placement based on the vein to be cannulated. The patient's left neck was prepped and draped in sterile fashion. 1% Lidocaine was used to anesthetize the surrounding skin area. A triple lumen 9F Cordis catheter was introduced into the internal jugular vein using Seldinger technique. The catheter was threaded smoothly over the guide wire and appropriate blood return was obtained. Each lumen of the catheter was evacuated of air and flushed with sterile saline. The catheter was then sutured in place to the skin and a sterile dressing applied. Perfusion to the extremity distal to the point of catheter insertion was checked and found to be adequate. There was no immediate complication. The patient tolerated procedure well. There was good blood return from all 3 ports. The catheter was sutured in place. Sterile dressing was applied by the nurse. Chest x-ray in order to check placement of the catheter, rule out pneumothorax. There was no immediate complication. MMODL / IJN: [id number] /
--- NOTE | 2021-03-03 13:42 | PCN ---
PROCEDURE NOTE PULMONARY/CRITICAL CARE PROCEDURE NOTE: OPERATORS: Dr. Chavez and Dr. Jaxson Haley. ARTERIAL LINE PLACEMENT: Indications: Hemodynamic monitoring. PREOP DIAGNOSIS: Frequent blood draws and blood gas monitoring. POSTOP DIAGNOSIS: Frequent blood draws and blood gas monitoring. A time-out was completed verifying correct patient, procedure, site, positioning, and implant(s) or special equipment if applicable. Elan's test was performed to ensure adequate perfusion. The patient's right wrist was prepped and draped in sterile fashion. 1% Lidocaine was used to anesthetize the area. An 18G Arrow arterial line was introduced into the radial artery. The catheter was threaded over the guide wire and the needle was removed with appropriate pulsatile blood return. Blood loss was minimal. The catheter was then sutured in place to the skin and a sterile dressing applied. Perfusion to the extremity distal to the point of catheter insertion was checked and found to be adequate. The patient tolerated the procedure well and there were no complications. There was informed consent and universal timeout. We used right radial artery. There was good blood return and waveform. Patient tolerated the procedure well. Right radial artery was used. There was no immediate complication. The catheter was sutured in place. Sterile dressing was applied by the nurse. The patient tolerated the procedure well. MMODL / IJN: [id number] /
--- NOTE | 2021-03-03 15:22 | XR ---
EXAMINATION TYPE: XR chest 1V portable DATE OF EXAM: 03/03/2021 Comparison: 03/03/2021, earlier today Clinical History: 60-year-old male Central Line Placement Findings: Left CVC tip within the right atrium. NG tube courses below the diaphragm. Satisfactory ET tube. Hear t upper limits of normal in size. Diffuse bilateral airspace opacity persists. There may be minimal i mprovement. No pleural effusion. Impression: 1. Left CVC tip in the right atrium. 2. Diffuse bilateral airspace disease persists. There may be minimal interval improvement.
[2021-03-03] MEDS ORDERED: VANCOMYCIN IV PER PHARMACY 1 EACH MISC MISCELLANE PRN (18:57)
[2021-03-03] MEDS ORDERED: CLEVIDIPINE BUTYRATE 25 MG in EMPTY BAG 1 BAG IV SCH (19:30)
[2021-03-03] MEDS: CISATRACURIUM 200 MG in SODIUM CHLORIDE 0.9% 180 ML IV SCH (19:40)
[2021-03-03] MEDS: VANCOMYCIN 1,750 MG in SODIUM CHLORIDE 0.9% 500 ML 500 ML IVPB SCH (19:57)
[2021-03-04 00:10] LABS: Glucose,Whole Blood 153 mg/dL (75-99)
[2021-03-04] MEDS: ALBUTEROL HFA INHALER INHALATION SCH ×6 (00:37→20:30)
[2021-03-04] MEDS: NOREPINEPHRINE 4 MG in SODIUM CHLORIDE 0.9% 250 ML IV SCH ×6 (01:42→22:25)
[2021-03-04 03:53] LABS: HCT 47.1 % (39.0-53.0); HGB 16.2 gm/dL (13.0-17.5); MCH 29.5 pg (25.0-35.0); MCHC 34.5 g/dL (31.0-37.0); MCV 85.5 fL (80.0-100.0); Mean Platelet Volume 6.8; Platelet Count 291 k/uL (150-450); Poikilocytosis Slight; RBC 5.51 m/uL (4.30-5.90); RDW 13.7 % (11.5-15.5); WBC 16.8 k/uL (3.8-10.6)
[2021-03-04 04:17] LABS: Calcium 6.9 mg/dL (8.4-10.2); Potassium 4.5 mmol/L (3.5-5.1)
[2021-03-04 04:38] LABS: Band Neutrophils % 31 %; Lymphocytes # (M) 0.34 k/uL (1.0-4.8); Metamyelocytes # (M) 1.01 k/uL (0); Metamyelocytes % 6 %; Neutrophils % (M) 58 %; Nucleated Red Blood Cells 0 /100 WBC (0-0); Total Cells Counted 100
[2021-03-04] MEDS: VANCOMYCIN 1,750 MG in SODIUM CHLORIDE 0.9% 500 ML 500 ML IVPB SCH (06:04)
[2021-03-04] MEDS: SODIUM CHLORIDE 0.9% 1,000 ML IV SCH ×3 (06:05→20:07)
[2021-03-04 06:12] LABS: Glucose,Whole Blood 173 mg/dL (75-99)
--- NOTE | 2021-03-04 07:39 | XR ---
EXAMINATION TYPE: XR chest 1V portable DATE OF EXAM: 03/04/2021 COMPARISON: 05/03/2020 INDICATION: Tube placement TECHNIQUE: Single frontal view of the chest is obtained. FINDINGS: The heart size is normal. The pulmonary vasculature is prominent. Diffuse increased lung markings are present this is greater at the right lung base. A small right ple ural effusion is likely present. Endotracheal tube tip is above the michael. Nasogastric tube transverses the thorax. Left central veno us catheter tip is within the right atrium. IMPRESSION: 1. Diffuse scattered increased lung markings greater at the right lung base. Correlate for atypical p neumonia. Other etiologies including pulmonary edema and CHF are within the differential. Findings ar e worsening at the right base.
[2021-03-04 07:53] LABS: ABG Base Excess -7.8 mmol/L; ABG HCO3 22 mmol/L (21-25); ABG Oxygen Saturation 86.5 % (94-97); ABG TCO2 25 mmol/L (19-24)
[2021-03-04 07:56] LABS: ABG PCO2 75 mmHg (35-45); ABG PH 7.08 (7.35-7.45); ABG PO2 55 mmHg (83-108); Allen Test Performed? no
[2021-03-04] MEDS: ENOXAPARIN 40 MG/0.4 ML SYRINGE SQ SCH (08:19)
[2021-03-04] MEDS: PANTOPRAZOLE 40 MG/10 ML VIAL IV SCH (08:19)
[2021-03-04] MEDS: DEXAMETHASONE SOD PHOSPHATE 10 MG/ML 1 ML VIAL IVP SCH (08:19)
[2021-03-04] MEDS: CHOLECALCIFEROL 25 MCG (1000 IU) TABLET PO SCH (08:20)
[2021-03-04] MEDS: ZINC SULFATE 220 MG CAP PO SCH (08:20)
[2021-03-04] MEDS: ASCORBIC ACID 500 MG TAB PO SCH (08:20)
[2021-03-04] MEDS ORDERED: SODIUM CHLORIDE 0.9% 2,000 ML IV ONE (09:04)
[2021-03-04 10:11] VITALS: BMI 33.8
--- NOTE | 2021-03-04 11:01 | P.PN ---
Subjective Progress Note Date: 03/04/21 Principal diagnosis: Respiratory failure. Pulmonary/critical care consult dated 03/03/2021. 60-year-old male, who presented to the emergency department yesterday, March 02, and was seen by Dr. Lott in the ER. The patient came in with complaints of shortness of breath. Apparently, the patient was diagnosed as having coronavirus infection about one week ago, at the [facility]. The patient presents via EMS, to our emergency room, with increasing shortness of breath, and mental status changes. Apparently, his saturations range from anywhere from 85% to 55%. His temperature was 102. The patient was taken to the ER, where he was evaluated. The patient was thought to be a good candidate for the ICU. I was called multiple times by nurses and doctors in the emergency room about this patient. I suggested the patient should be intubated in the emergency room department, but the ER physician had ready left for the day, so I ended up sending the patient to the intensive care unit right away, and the patient required intubation. Currently, the patient is on the volume assist control mode, rate 24, tidal volume 450, FiO2 70%, and PEEP of 15. Arterial blood gases done on 100% showed pO2 220, pCO2 of 63, and a pH is 7.23. The FiO2 was reduced to 70%. The patient is on Nimbex at 2 mcg/kg/m, propofol at 50 mcg/kg/m, saline at 130 mL an hour, and tube feedings will be started today. Labs today include a white count 15.7, hemoglobin 14.5, hematocrit platelet count of 187,000. Sodium 125, potassium 4.9, chlorides 97, CO2 25, anion gap 3, BUN 21, creatinine 0.82. Urine is yellow and cloudy with 2+ protein, large amount of blood, and 14 WBCs. No bacteria. Chest x-ray shows diffuse bilateral infiltrates, and CAT scan was negative for pulmonary embolism, but did show typical pattern for coronavirus associated pneumonia. A left internal jugular triple-lumen catheter and a right radial art line was placed by my team today. Progress note dated 03/04/2021. 60-year-old male, who presented to the emergency department, on March 02, b ecause of shortness of breath. The patient was diagnosed as having coronavirus infection about 8 days ago. The patient was brought to the emergency room by EMS, with complaints of increasing shortness of breath and mental status changes. Apparently saturations were quite low, even dipping into the 50s. He had an elevated temperature of 102. Because of leela respiratory failure, the patient was intubated, and is now in the intensive care unit. Currently, the patient's doing poorly. He is on the volume assist control mode, rate 24, tidal volume 450, FiO2 80%, and PEEP of 15. Arterial blood gases show pO2 of 55, pCO2 of 75, and a pH is 7.079. Patient's on norepinephrine at 0.06 mcg/kg/m, propofol 60 mcg/kg/m, Nimbex at 1.5 mcg/kg/m, vital AF, at 24 mL an hour, which is goal, and saline at 130 mL an hour. The patient's FiO2 was turned up to 100%, and his respiratory rate on the ventilator is increased from 24 up to 32 breaths per minute. A repeat blood gas will be done about an hour and a half. The patient did have a left internal jugular triple-lumen catheter and right radial art line placed by our team yesterday. White count 16.8, with a normal hemoglobin, hematocrit, platelet count. D-dimer is 2.27. Sodium 1:30, potassium 0.5, chlorides 102, CO2 23, anion gap 5, BUN 29, and creatinine 1.38. LDH is 2624 and C-reactive protein is 15. Cortisol level was 55. Chest x-rays consistent with diffuse bilateral infiltrates. This is typical of coronavirus associated pneumonia. Objective - Vital Signs Vital signs: Vital Signs Temp 98.1 F 03/04/21 04:00 Pulse 111 H 03/04/21 10:45 Resp 32 H 03/04/21 10:45 BP 133/65 03/04/21 10:45 Pulse Ox 88 L 03/04/21 10:45 Intake & Output 03/03/21 03/04/21 03/04/21 18:59 06:59 18:59 Intake Total 8116.002 6194.829 427.81 Output Total 850 350 25 Balance 6954.996 8158.829 402.81 Weight 92.6 kg 95.2 kg 95.2 kg Intake: IV 1560 1560 260 Sodium Chloride 0.9% 1, 1560 1560 260 000 ml @ 130 mls/hr IV . Q7H42M [facility]I Rx#:[id number] Intake, IV Titration 399.949 291.829 143.81 Amount Cisatracurium 200 mg In 200 22.82 Sodium Chloride 0.9% 180 ml @ 2 MCG/KG/MIN 10.614 mls/hr IV .[id number] K[facility]I Rx #:[id number] Norepinephrine 4 mg In 0.562 43.81 Sodium Chloride 0.9% 250 ml @ 0.05 MCG/KG/MIN 16. 85 mls/hr IV .Q15H5M [facility]I Rx#:[id number] propofoL 1,000 mg In 199.949 268.447 100 Empty Bag 1 bag @ Titrate IV .Q0M KANDI Rx#: [id number] Tube Feeding 408 24 Other 180 Output: Urine 850 350 25 Other: Voiding Method Indwelling Catheter Indwelling Catheter ABP, PAP, CO, CI - Last Documented Arterial Blood Pressure 104/50 - Exam Sedated, and paralyzed, with an orally placed endotracheal tube and NG tube. HEENT examination is grossly unremarkable. Neck supple. Full range of motion. No adenopathy thyromegaly or neck vein distention. Cardiovascular examination reveals regular rhythm rate. S1-S2 normal. No S3 or S4. No discernible murmur noted. Heart rate 111 bpm. Lungs reveal diffuse bilateral rhonchi. No wheezes or crackles. Breath sounds equal bilaterally. Saturations are 88%. Abdomen soft. Bowel sounds are noted. No masses. Extremities are intact. No cyanosis clubbing or edema. Skin is without rash or lesion. Neurologic examination cannot be adequately assessed as the patient is sedated and paralyzed. - Labs CBC & Chem 7: 03/04/21 03:35 03/04/21 03:35 Labs: Abnormal Lab Results - Last 24 Hours (Table) 03/03/21 03/03/21 03/04/21 Range/Units 12:21 23:57 03:35 WBC 16.8 H (3.8-10.6) k/uL Neutrophils # (Manual) 14.90 H (1.3-7.7) k/uL Lymphocytes # (Manual) 0.34 L (1.0-4.8) k/uL Metamyelocytes # (Man) 1.01 H (0) k/uL D-Dimer (<0.60) mg/L FEU ABG pH (7.35-7.45) ABG pCO2 (35-45) mmHg ABG pO2 (83-108) mmHg ABG Total CO2 (19-24) mmol/L ABG O2 Saturation (94-97) % Sodium (137-145) mmol/L BUN (9-20) mg/dL Creatinine (0.66-1.25) mg/dL Glucose (74-99) mg/dL POC Glucose (mg/dL) 157 H 153 H (75-99) mg/dL Calcium (8.4-10.2) mg/dL Lactate Dehydrogenase (313-618) U/L C-Reactive Protein (<1.0) mg/dL TSH (0.465-4.680) mIU/L 03/04/21 03/04/21 03/04/21 Range/Units 03:35 03:35 03:35 WBC (3.8-10.6) k/uL Neutrophils # (Manual) (1.3-7.7) k/uL Lymphocytes # (Manual) (1.0-4.8) k/uL Metamyelocytes # (Man) (0) k/uL D-Dimer 2.27 H (<0.60) mg/L FEU ABG pH (7.35-7.45) ABG pCO2 (35-45) mmHg ABG pO2 (83-108) mmHg ABG Total CO2 (19-24) mmol/L ABG O2 Saturation (94-97) % Sodium 130 L (137-145) mmol/L BUN 29 H (9-20) mg/dL Creatinine 1.38 H (0.66-1.25) mg/dL Glucose 165 H (74-99) mg/dL POC Glucose (mg/dL) (75-99) mg/dL Calcium 6.9 L (8.4-10.2) mg/dL Lactate Dehydrogenase 2624 H (313-618) U/L C-Reactive Protein 15.0 H (<1.0) mg/dL TSH 0.190 L (0.465-4.680) mIU/L 03/04/21 03/04/21 Range/Units 06:10 07:52 WBC (3.8-10.6) k/uL Neutrophils # (Manual) (1.3-7.7) k/uL Lymphocytes # (Manual) (1.0-4.8) k/uL Metamyelocytes # (Man) (0) k/uL D-Dimer (<0.60) mg/L FEU ABG pH 7.08 L* (7.35-7.45) ABG pCO2 75 H* (35-45) mmHg ABG pO2 55 L* (83-108) mmHg ABG Total CO2 25 H (19-24) mmol/L ABG O2 Saturation 86.5 L (94-97) % Sodium (137-145) mmol/L BUN (9-20) mg/dL Creatinine (0.66-1.25) mg/dL Glucose (74-99) mg/dL POC Glucose (mg/dL) 173 H (75-99) mg/dL Calcium (8.4-10.2) mg/dL Lactate Dehydrogenase (313-618) U/L C-Reactive Protein (<1.0) mg/dL TSH (0.465-4.680) mIU/L Microbiology - Last 24 Hours (Table) 03/02/21 11:34 Blood Culture Gram Stain - Preliminary Blood Blood Culture - Preliminary Staphylococcus epidermidis 03/02/21 11:34 Blood Culture - Preliminary Blood No Growth after 24 hours 03/02/21 11:51 Blood Culture - Preliminary Blood No Growth after 24 hours Assessment and Plan Assessment: Acute hypoxemic respiratory failure secondary to coronavirus associated pneumonia, status post intubation and mechanical ventilation on 03/02/2021. Elevated inflammatory marker secondary to coronavirus infection. History of hyponatremia, improved. Previous history of hernia repair. History of tobacco use. Plan: Plan dated 03/03/2021. The patient is seen in the intensive care unit. A central line and arterial line placed by my team. The patient's medications are reviewed. Prognosis is very guarded. The FiO2 on the ventilator is reduced from 100% to 70%. Labs and x-rays are ordered for the morning. The patient will need a blood gas in the morning. Tube feedings will be started. The patient is a candidate for vitamins, Lovenox, and Decadron. The CT angiogram did not show pulmonary embolism. Additional recommendations and suggestions are forthcoming. Prognosis is guarded. Plan dated 03/04/2021. I will attempt to call his , Daysi. FiO2 was increased to 100%. The rate on the ventilator since increasing 24-32 breaths per minute. A repeat blood gas will be done about an hour to an hour and a half. The patient remains on norepinephrine, propofol, and Nimbex. The patient is receiving nutrition. Other medications include albuterol, vitamin C, vitamin D3, Decadron, Lovenox, and zinc. Overall prognosis remains very guarded. The patient may not survive this illness. I will express that to his . Time with Patient: Greater than 30
[2021-03-04 11:10] LABS: ABG Base Excess -9.3 mmol/L; ABG HCO3 20 mmol/L (21-25); ABG Oxygen Saturation 89.5 % (94-97); ABG PCO2 60 mmHg (35-45); ABG TCO2 22 mmol/L (19-24)
[2021-03-04 11:11] LABS: ABG PH 7.13 (7.35-7.45); ABG PO2 58 mmHg (83-108); Allen Test Performed? no
[2021-03-04 11:46] LABS: T4, Free (Free Thyroxine) 1.33 ng/dL (0.78-2.19)
[2021-03-04 12:57] LABS: Glucose,Whole Blood 166 mg/dL (75-99)
[2021-03-04] MEDS: CISATRACURIUM 200 MG in SODIUM CHLORIDE 0.9% 180 ML IV SCH (12:57)
[2021-03-04 17:55] LABS: Glucose,Whole Blood 157 mg/dL (75-99)
[2021-03-04 19:37] VITALS: RESP 0
[2021-03-04] MEDS: CHLORHEXIDINE GLUCONATE 15 ML CUP MUCOUS MEM SCH (20:15)
[2021-03-04 23:13] VITALS: BP 85/43; PULSE 113; TEMP 102.9
--- NOTE | 2021-03-04 23:17 | P.PN ---
Subjective Progress Note Date: 03/03/21 Principal diagnosis: Acute hypoxic respiratory failure secondary to COVID-19 pneumonia Patient is a 60-year-old male without significant past medical history except prior smoking presents to ER with complaints of worsening shortness of breath and altered mental status. Patient was brought to the hospital by EMS. Patient was found to be hypoxic with pulse ox 55% on room air and improved to 85% on oxygen. T-max was 102 F as per EMS. Patient is confused and could not provide any history at this time. BiPAP when she was in the ER. On admission blood pressure 151/109 pulse 91 T- max 99.7 and pulse ox 87% on 100% nonrebreather. Chest x-ray showed borderline cardiomegaly. Diffuse bilateral airspace disease. Right greater than left. No pleural effusion. CT angiogram of the chest was done due to elevated D-dimer level. No acute pulmonary embolism. Advanced opacification of the bilateral lung lewis atypical pneumonia and ARDS. Laboratory showed WBC 9.2 hemoglobin 15.2, platelets 177 lymphocytes 0.5 D-dimer 1.67 ABG showed pH of 7.29, PCO2 54 PO2 53 Sodium 120 potassium 4.0 chloride 88 BUN 26 and creatinine 0.95, calcium 7.5 lactic acid 1.8 Troponin 0 0.110 proBNP 734, LDH 3358, CRP 7.2, coronavirus PCR detected. 03/03/2021 Patient is in the MICU and was intubated yesterday evening. On assist control with FiO2 80%. ABG showed pH 7.23 PCO2 63 and PO2 229 bicarb 26, sodium 125 potassium 4.9 chloride 97 BUN 21 and creatinine 0.82 and calcium 6.7 Patient is on pressor support with Levophed. Patient is tachycardic and hypotensive. Afebrile. Chest x-ray showed extensive bilateral, right greater than left airspace disease relatively similar. There may be slight improvement on the left. Patient is being continued on dexamethasone IV 6 mg daily and Lovenox and covered cocktail of multivitamins. Current medications reviewed. Objective - Vital Signs Vital signs: Vital Signs Temp 98.9 F 03/03/21 20:00 Pulse 104 H 03/03/21 21:00 Resp 24 03/03/21 21:00 BP 104/63 03/03/21 21:00 Pulse Ox 84 L 03/03/21 21:00 Intake & Output 03/03/21 03/03/21 03/04/21 06:59 18:59 06:59 Intake Total 9708.000 4864.949 390 Output Total 1130 850 200 Balance 772.168 3180.949 190 Weight 92.6 kg 92.6 kg Intake: IV 1560 1560 390 Sodium Chloride 0.9% 1, 1560 1560 390 000 ml @ 130 mls/hr IV . Q7H42M [facility]I Rx#:[id number] Intake, IV Titration 277.822 399.949 Amount Cisatracurium 200 mg In 200 Sodium Chloride 0.9% 180 ml @ 2 MCG/KG/MIN 10.614 mls/hr IV .[id number] [facility]I Rx #:[id number] Norepinephrine 4 mg In 82.789 Sodium Chloride 0.9% 250 ml @ 0.05 MCG/KG/MIN 16. 85 mls/hr IV .Q15H5M [facility]I Rx#:[id number] propofoL 1,000 mg In 195.033 199.949 Empty Bag 1 bag @ Titrate IV .Q0M KANDI Rx#: [id number] Output: Urine 1130 850 200 Other: Voiding Method Indwelling Catheter Indwelling Catheter Indwelling Catheter ABP, PAP, CO, CI - Last Documented Arterial Blood Pressure 102/52 - Exam PHYSICAL EXAMINATION: Patient is sedated and intubated and on mechanical ventilator... HEENT: Normocephalic. Neck is supple. Pupils reactive. Nostrils clear. Oral cavity is moist. Neck reveals no JVD, carotid bruits, or thyromegaly. CHEST EXAMINATION: Trachea is central. Symmetrical expansion. Bilateral dimi nished air entry and diffuse coarse sounds. CARDIAC: Normal S1, S2 with no gallops. No murmurs ABDOMEN: Soft. Bowel sounds normal. No organomegaly. No abdominal bruits. Extremities: reveal no edema. No clubbing or cyanosis Neurologically Patient is sedated and intubated. No gross focal neurological deficit. Skin: No rash or skin lesions. Psychiatric: Could not be assessed at this time. Musculoskeletal: No joint swelling or deformity. - Labs CBC & Chem 7: 03/04/21 03:35 03/04/21 03:35 Labs: Abnormal Lab Results - Last 24 Hours (Table) 03/02/21 03/02/2121 Range/Units 11:40 11:40 00:13 WBC (3.8-10.6) k/uL Neutrophils # (1.3-7.7) k/uL Lymphocytes # (1.0-4.8) k/uL ABG pH (7.35-7.45) ABG pCO2 (35-45) mmHg ABG pO2 (83-108) mmHg ABG HCO3 (21-25) mmol/L ABG Total CO2 (19-24) mmol/L ABG O2 Saturation (94-97) % Sodium (137-145) mmol/L Chloride (98-107) mmol/L BUN (9-20) mg/dL Glucose (74-99) mg/dL POC Glucose (mg/dL) 125 H (75-99) mg/dL Calcium (8.4-10.2) mg/dL Ferritin 4403.0 H (22.0-322.0) ng/mL Procalcitonin 0.35 H (0.02-0.09) ng/mL 03/03/21 03/03/21 03/03/21 Range/Units 04:46 04:46 06:03 WBC 15.7 H (3.8-10.6) k/uL Neutrophils # 14.2 H (1.3-7.7) k/uL Lymphocytes # 0.7 L (1.0-4.8) k/uL ABG pH (7.35-7.45) ABG pCO2 (35-45) mmHg ABG pO2 (83-108) mmHg ABG HCO3 (21-25) mmol/L ABG Total CO2 (19-24) mmol/L ABG O2 Saturation (94-97) % Sodium 125 L (137-145) mmol/L Chloride 97 L (98-107) mmol/L BUN 21 H (9-20) mg/dL Glucose 140 H (74-99) mg/dL POC Glucose (mg/dL) 134 H (75-99) mg/dL Calcium 6.7 L (8.4-10.2) mg/dL Ferritin (22.0-322.0) ng/mL Procalcitonin (0.02-0.09) ng/mL 03/03/21 03/03/21 Range/Units 08:24 12:21 WBC (3.8-10.6) k/uL Neutrophils # (1.3-7.7) k/uL Lymphocytes # (1.0-4.8) k/uL ABG pH 7.23 L (7.35-7.45) ABG pCO2 63 H (35-45) mmHg ABG pO2 220 H (83-108) mmHg ABG HCO3 26 H (21-25) mmol/L ABG Total CO2 28 H (19-24) mmol/L ABG O2 Saturation 100.0 H (94-97) % Sodium (137-145) mmol/L Chloride (98-107) mmol/L BUN (9-20) mg/dL Glucose (74-99) mg/dL POC Glucose (mg/dL) 157 H (75-99) mg/dL Calcium (8.4-10.2) mg/dL Ferritin (22.0-322.0) ng/mL Procalcitonin (0.02-0.09) ng/mL Microbiology - Last 24 Hours (Table) 03/02/21 11:34 Blood Culture Gram Stain - Preliminary Blood 03/02/21 11:34 Blood Culture - Preliminary Blood No Growth after 24 hours 03/02/21 11:51 Blood Culture - Preliminary Blood No Growth after 24 hours 03/02/21 20:25 Urine Culture - Preliminary Urine,Clean Catch Assessment and Plan Assessment: Acute hypoxic respiratory failure secondary to COVID-19 pneumonia. Patient was tested positive about a week ago. Currently requiring BiPAP--> Mechanical ventilator. Altered mental status/metabolic encephalopathy Elevated inflammatory markers secondary to COVID-19 pneumonia Hyponatremia likely due to volume depletion/hypoosmolar Mild elevated troponin level likely ischemia DVT prophylaxis with Lovenox Plan: Patient is in the MICU. Patient will be continued Mechanical ventilator. and albuterol/ipratropium inhalation. Patient will be continued dexamethasone 6 mg IV daily, vitamin D3, ascorbic acid and zinc sulfate. Patient is requiring norepinephrine for pressor support. Continue with DVT prophylaxis Lovenox and follow-up closely. Prognosis guarded at this time. Critical care team is on board. Time with Patient: Greater than 30
--- NOTE | 2021-03-04 23:21 | P.PN ---
Subjective Progress Note Date: 03/04/21 Principal diagnosis: Acute hypoxic respiratory failure secondary to COVID-19 pneumonia Patient is a 60-year-old male without significant past medical history except prior smoking presents to ER with complaints of worsening shortness of breath and altered mental status. Patient was brought to the hospital by EMS. Patient was found to be hypoxic with pulse ox 55% on room air and improved to 85% on oxygen. T-max was 102 F as per EMS. Patient is confused and could not provide any history at this time. BiPAP when she was in the ER. On admission blood pressure 151/109 pulse 91 T- max 99.7 and pulse ox 87% on 100% nonrebreather. Chest x-ray showed borderline cardiomegaly. Diffuse bilateral airspace disease. Right greater than left. No pleural effusion. CT angiogram of the chest was done due to elevated D-dimer level. No acute pulmonary embolism. Advanced opacification of the bilateral lung lewis atypical pneumonia and ARDS. Laboratory showed WBC 9.2 hemoglobin 15.2, platelets 177 lymphocytes 0.5 D-dimer 1.67 ABG showed pH of 7.29, PCO2 54 PO2 53 Sodium 120 potassium 4.0 chloride 88 BUN 26 and creatinine 0.95, calcium 7.5 lactic acid 1.8 Troponin 0 0.110 proBNP 734, LDH 3358, CRP 7.2, coronavirus PCR detected. 03/03/2021 Patient is in the MICU and was intubated yesterday evening. On assist control with FiO2 80%. ABG showed pH 7.23 PCO2 63 and PO2 229 bicarb 26, sodium 125 potassium 4.9 chloride 97 BUN 21 and creatinine 0.82 and calcium 6.7 Patient is on pressor support with Levophed. Patient is tachycardic and hypotensive. Afebrile. Chest x-ray showed extensive bilateral, right greater than left airspace disease relatively similar. There may be slight improvement on the left. Patient is being continued on dexamethasone IV 6 mg daily and Lovenox and covered cocktail of multivitamins. 03/04/2021 Patient is in the MICU. On mechanical ventilator and sedated. Assist-control with tidal volume 450 cc, FiO2 80% and PEEP of 15. Patient is being continued on norepinephrine, propofol and Nimbex drips. Patient is tachycardic, tachypneic. ABG showed pH 7.08, PCO2 75 and PO2 55 Laboratory data showed WBC 16.8, hemoglobin leg 16.2 and platelets 291 and D- dimer 2.27 Sodium 130 potassium 4.5 chloride 102 bicarb is 23 BUN 29 and creatinine 1.38 LDH 2624, CRP 15 and cortisol 55 Patient is maintained on IV dexamethasone Lovenox subcu and duo nebs. Critical care team is on board. Current medications reviewed. Objective - Vital Signs Vital signs: Vital Signs Temp 100.1 F H 03/04/21 11:00 Pulse 114 H 03/04/21 19:30 Resp 0 L 03/04/21 19:30 BP 96/49 03/04/21 19:30 Pulse Ox 86 L 03/04/21 19:00 Intake & Output 03/04/21 03/04/21 03/05/21 06:59 18:59 06:59 Intake Total 2439.829 2428.133 582.421 Output Total 350 53 35 Balance 2089.829 2375.133 547.421 Weight 95.2 kg 95.2 kg Intake: IV 1560 1560 130 Sodium Chloride 0.9% 1, 1560 1560 130 000 ml @ 130 mls/hr IV . Q7H42M [facility] Rx#:[id number] Intake, IV Titration 291.829 796.133 452.421 Amount Cisatracurium 200 mg In 22.82 120.476 Sodium Chloride 0.9% 180 ml @ 2 MCG/KG/MIN 10.614 mls/hr IV .[id number] [facility] Rx #:[id number] Norepinephrine 4 mg In 0.562 375.657 452.421 Sodium Chloride 0.9% 250 ml @ 0.05 MCG/KG/MIN 16. 85 mls/hr IV .Q15H5M [facility] Rx#:[id number] propofoL 1,000 mg In 268.447 300 Empty Bag 1 bag @ Titrate IV .Q0M [facility] Rx#: [id number] Tube Feeding 408 72 Other 180 Output: Urine 350 53 35 Other: Voiding Method Indwelling Catheter Indwelling Catheter ABP, PAP, CO, CI - Last Documented Arterial Blood Pressure 78/41 - Exam PHYSICAL EXAMINATION: Patient is sedated and intubated and on mechanical ventilator... HEENT: Normocephalic. Neck is supple. Pupils reactive. Nostrils clear. Oral cavity is moist. Neck reveals no JVD, carotid bruits, or thyromegaly. CHEST EXAMINATION: Trachea is central. Symmetrical expansion. Bilateral diminished air entry and diffuse coarse sounds. CARDIAC: Normal S1, S2 with no gallops. No murmurs ABDOMEN: Soft. Bowel sounds normal. No organomegaly. No abdominal bruits. Extremities: reveal no edema. No clubbing or cyanosis Neurologically Patient is sedated and intubated. No gross focal neurological deficit. Skin: No rash or skin lesions. Psychiatric: Could not be assessed at this time. Musculoskeletal: No joint swelling or deformity. - Labs CBC & Chem 7: 03/04/21 03:35 03/04/21 03:35 Labs: Abnormal Lab Results - Last 24 Hours (Table) 03/03/21 03/04/21 03/04/21 Range/Units 23:57 03:35 03:35 WBC 16.8 H (3.8-10.6) k/uL Neutrophils # (Manual) 14.90 H (1.3-7.7) k/uL Lymphocytes # (Manual) 0.34 L (1.0-4.8) k/uL Metamyelocytes # (Man) 1.01 H (0) k/uL D-Dimer (<0.60) mg/L FEU ABG pH (7.35-7.45) ABG pCO2 (35-45) mmHg ABG pO2 (83-108) mmHg ABG HCO3 (21-25) mmol/L ABG Total CO2 (19-24) mmol/L ABG O2 Saturation (94-97) % Sodium 130 L (137-145) mmol/L BUN 29 H (9-20) mg/dL Creatinine 1.38 H (0.66-1.25) mg/dL Glucose 165 H (74-99) mg/dL POC Glucose (mg/dL) 153 H (75-99) mg/dL Calcium 6.9 L (8.4-10.2) mg/dL Lactate Dehydrogenase 2624 H (313-618) U/L C-Reactive Protein 15.0 H (<1.0) mg/dL TSH (0.465-4.680) mIU/L 03/04/21 03/04/21 03/04/21 Range/Units 03:35 03:35 06:10 WBC (3.8-10.6) k/uL Neutrophils # (Manual) (1.3-7.7) k/uL Lymphocytes # (Manual) (1.0-4.8) k/uL Metamyelocytes # (Man) (0) k/uL D-Dimer 2.27 H (<0.60) mg/L FEU ABG pH (7.35-7.45) ABG pCO2 (35-45) mmHg ABG pO2 (83-108) mmHg ABG HCO3 (21-25) mmol/L ABG Total CO2 (19-24) mmol/L ABG O2 Saturation (94-97) % Sodium (137-145) mmol/L BUN (9-20) mg/dL Creatinine (0.66-1.25) mg/dL Glucose (74-99) mg/dL POC Glucose (mg/dL) 173 H (75-99) mg/dL Calcium (8.4-10.2) mg/dL Lactate Dehydrogenase (313-618) U/L C-Reactive Protein (<1.0) mg/dL TSH 0.190 L (0.465-4.680) mIU/L 03/04/21 03/04/21 03/04/21 Range/Units 07:52 11:08 12:55 WBC (3.8-10.6) k/uL Neutrophils # (Manual) (1.3-7.7) k/uL Lymphocytes # (Manual) (1.0-4.8) k/uL Metamyelocytes # (Man) (0) k/uL D-Dimer (<0.60) mg/L FEU ABG pH 7.08 L* 7.13 L* (7.35-7.45) ABG pCO2 75 H* 60 H (35-45) mmHg ABG pO2 55 L* 58 L* (83-108) mmHg ABG HCO3 20 L (21-25) mmol/L ABG Total CO2 25 H (19-24) mmol/L ABG O2 Saturation 86.5 L 89.5 L (94-97) % Sodium (137-145) mmol/L BUN (9-20) mg/dL Creatinine (0.66-1.25) mg/dL Glucose (74-99) mg/dL POC Glucose (mg/dL) 166 H (75-99) mg/dL Calcium (8.4-10.2) mg/dL Lactate Dehydrogenase (313-618) U/L C-Reactive Protein (<1.0) mg/dL TSH (0.465-4.680) mIU/L 03/04/21 Range/Units 17:54 WBC (3.8-10.6) k/uL Neutrophils # (Manual) (1.3-7.7) k/uL Lymphocytes # (Manual) (1.0-4.8) k/uL Metamyelocytes # (Man) (0) k/uL D-Dimer (<0.60) mg/L FEU ABG pH (7.35-7.45) ABG pCO2 (35-45) mmHg ABG pO2 (83-108) mmHg ABG HCO3 (21-25) mmol/L ABG Total CO2 (19-24) mmol/L ABG O2 Saturation (94-97) % Sodium (137-145) mmol/L BUN (9-20) mg/dL Creatinine (0.66-1.25) mg/dL Glucose (74-99) mg/dL POC Glucose (mg/dL) 157 H (75-99) mg/dL Calcium (8.4-10.2) mg/dL Lactate Dehydrogenase (313-618) U/L C-Reactive Protein (<1.0) mg/dL TSH (0.465-4.680) mIU/L Microbiology - Last 24 Hours (Table) 03/02/21 11:51 Blood Culture - Preliminary Blood No Growth after 48 hours 03/02/21 11:34 Blood Culture - Preliminary Blood No Growth after 48 hours 03/02/21 20:25 Urine Culture - Final Urine,Clean Catch 03/02/21 11:34 Blood Culture Gram Stain - Preliminary Blood Blood Culture - Preliminary Staphylococcus epidermidis Assessment and Plan Assessment: Acute hypoxic respiratory failure secondary to COVID-19 pneumonia. Patient was tested positive about a week ago. Currently requiring BiPAP--> Mechanical ventilator. Altered mental status/metabolic encephalopathy Elevated inflammatory markers secondary to COVID-19 pneumonia Hyponatremia likely due to volume depletion/hypoosmolar Mild elevated troponin level likely ischemia DVT prophylaxis with Lovenox Plan: Patient is in the MICU. Patient will be continued Mechanical ventilator. and albuterol/ipratropium inhalation. Patient will be continued dexamethasone 6 mg IV daily, vitamin D3, ascorbic acid and zinc sulfate. Patient is requiring norepinephrine for pressor support. Continue with DVT prophylaxis Lovenox and follow-up closely. Prognosis guarded at this time. Critical care team is on board. Time with Patient: Greater than 30
[2021-03-05] MEDS: ALBUTEROL HFA INHALER INHALATION SCH (02:29)
--- NOTE | 2021-03-06 09:48 | P.CONS ---
History of Present Illness - Reason for Consult Consult date: 03/04/21 bacteremia Requesting physician: Socorro Duarte - Chief Complaint shortness of breath x 1 week - History of Present Illness History of present illness : Patient is 60-year-old male presenting to the ER on 03/02/2021 for evaluation of increasing shortness of breath and some delirium that started the day of presentation to the hospital patient apparently was diagnosed with a COVID-19 about a week before presentation to the hospital patient was noticed to be hypoxic with O2 sats of 55% on arrival to the ER patient did have low-grade fever of 99.7 F the patient is afebrile since then except low-grade fever 100.1 this morning patient did have a normal white count presentation subsequent white count is up to 16.8 today BUN/creatinine was mildly elevated AST was elevated troponin was elevated as well urine was mildly positive sims PCR was positive RSV influenza was negative patient did have a chest x-ray borderline cardiomegaly diffuse bilateral airspace disease patient also have a CT angiogram of the chest no acute pulmonary embolism discharged once observation bilateral lung field suggestive of atypical pneumonia/ARDS patient also have a blood culture drawn which came back positive with gram- positive cocci that has prompted this infectious disease consultation patient is currently sedated on the vent on the pressor support with FiO2 of 100% no significant purulent secretion through the ET diarrhea or any other changes reported by the nursing staff patient is currently being managed by pulmonary for his underlying COVID-19 pneumonia Review of system: Positive point has been mentioned in HPI complete review could not be obtained because of underlying mental status Past medical history : Reviewed, documented below Past surgical history : Reviewed, documented below Social history: Reviewed, documented below Medications: Reviewed, as documented below EXAMINATION: Vital sigans= Reviewed and documented below GENERAL DESCRIPTION: Middle-aged intubated on the vent. No tachypnea or accessory muscle of respiration use. HEENT: Shows Pallor , no scleral icterus. Oral mucous membrane is dry. NECK: Trachea central, no thyromegaly. LUNGS: Unlabored breathing. Coarse breath sounds bilaterally. No wheeze or crackle. HEART: S1, S2, regular rate and rhythm. ABDOMEN: Soft, no tenderness , guarding or rigidity EXTREMITIES: No edema of feet. SKIN: No rash, no masses palpable. NEUROLOGICAL: The patient is sedated on the vent LABS AND RADIOLOGY: Reviewed results see below Assessment : 1-patient with positive blood culture with gram-positive cocci which seems to be more of a staph epidermidis likely representing a skin contaminant as the patient has no clinical diseases to go along with it 2-patient with acute respiratory failure likely severe underlying COVID-19 pneumonia with low clinical suspicious for secondary bacterial pneumonia Plan: 1-no need for vancomycin 2-blood culture repeated document clearance of his bacteremia 3-continue the patient on dexamethasone Lovenox zinc ascorbic acid for his underlying COVID-19 pneumonia Overall prognosis remains to be guarded per the nursing staff family plan for possible withdrawal of care, waiting for the arrival of the son We will follow on clinical condition and cultures to further adjust medication if needed Thank you for this consultation we will follow the patient along with you Past Medical History Past Medical History: No Reported History History of Any Multi-Drug Resistant Organisms: None Reported Past Surgical History: Hernia Repair Past Psychological History: No Psychological Hx Reported Smoking Status: Former smoker Past Alcohol Use History: None Reported Past Drug Use History: None Reported Medications and Allergies Home Medications Medication Instructions Recorded Confirmed Type No Known Home Medications 03/02/21 03/02/21 History Allergies Allergy/AdvReac Type Severity Reaction Status Date / Time No Known Allergies Allergy Verified 03/02/21 11:53 Physical Exam Vitals: Vital Signs Temp Pulse Resp BP Pulse Ox 03/04/21 11:00 100.1 F H 111 H 32 H 133/65 88 L 03/04/21 10:45 111 H 32 H 133/65 88 L 03/04/21 10:30 111 H 32 H 133/65 89 L 03/04/21 10:15 111 H 32 H 133/65 88 L 03/04/21 10:00 112 H 32 H 114/60 87 L 03/04/21 09:45 110 H 32 H 114/60 87 L 03/04/21 09:30 111 H 32 H 114/60 86 L 03/04/21 09:15 111 H 32 H 114/60 87 L 03/04/21 09:00 110 H 24 113/67 85 L 03/04/21 08:45 107 H 24 113/67 85 L 03/04/21 08:30 111 H 24 113/67 84 L 03/04/21 08:15 112 H 24 113/67 85 L 03/04/21 08:00 112 H 24 116/60 85 L 03/04/21 07:45 112 H 24 116/60 85 L 03/04/21 07:30 112 H 24 116/60 85 L 03/04/21 07:15 112 H 24 116/60 85 L 03/04/21 07:00 112 H 24 85 L 03/04/21 06:45 112 H 24 85 L 03/04/21 06:30 112 H 24 85 L 03/04/21 06:15 110 H 24 85 L 03/04/21 06:00 112 H 24 102/59 85 L 03/04/21 05:00 112 H 24 111/66 85 L 03/04/21 04:00 98.1 F 111 H 24 117/61 85 L 03/04/21 03:00 110 H 24 114/64 85 L 03/04/21 02:00 112 H 24 114/64 86 L 03/04/21 01:00 110 H 24 107/59 86 L 03/04/21 00:26 110 H 24 107/59 86 L 03/04/21 00:00 98.8 F 108 H 16 101/57 86 L 03/03/21 23:00 105 H 24 100/56 84 L 03/03/21 22:00 104 H 24 98/57 86 L 03/03/21 21:00 104 H 24 104/63 84 L 03/03/21 20:00 98.9 F 105 H 24 123/67 89 L 03/03/21 19:00 105 H 24 141/68 92 L 03/03/21 18:00 95 24 146/73 95 03/03/21 17:00 86 24 133/73 95 03/03/21 16:00 98.9 F 84 24 110/64 94 L 03/03/21 15:00 79 24 110/64 95 Intake and Output 03/03/21 03/04/21 03/04/21 22:59 06:59 14:59 Intake Total 1394.82 0727.102 2014.155 Output Total 525 120 35 Balance 869.82 8368.139 3414.155 Intake: IV 1040 1040 650 Sodium Chloride 0.9% 1, 1040 1040 650 000 ml @ 130 mls/hr IV . Q7H42M [facility] Rx#:[id number] Intake, IV Titration 222.82 269.009 444.155 Amount Cisatracurium 200 mg In 222.82 120.476 Sodium Chloride 0.9% 180 ml @ 2 MCG/KG/MIN 10.614 mls/hr IV .[id number] [facility] Rx #:[id number] Norepinephrine 4 mg In 0.562 123.679 Sodium Chloride 0.9% 250 ml @ 0.05 MCG/KG/MIN 16. 85 mls/hr IV .Q15H5M [facility] Rx#:[id number] propofoL 1,000 mg In 268.447 200 Empty Bag 1 bag @ Titrate IV .Q0M [facility] Rx#: [id number] Tube Feeding 72 336 72 Other 60 120 Output: Urine 525 120 35 Other: Voiding Method Indwelling Catheter Indwelling Catheter Indwelling Catheter Weight 92.6 kg 95.2 kg 95.2 kg ABP, PAP, CO, CI - Last 8 Hours Arterial Blood Pressure 102/48 Arterial Blood Pressure 104/50 Arterial Blood Pressure 100/49 Arterial Blood Pressure 100/50 Arterial Blood Pressure 127/57 Arterial Blood Pressure 114/54 Arterial Blood Pressure 96/49 Arterial Blood Pressure 100/50 Arterial Blood Pressure 97/47 Arterial Blood Pressure 97/48 Arterial Blood Pressure 99/49 Arterial Blood Pressure 102/50 Arterial Blood Pressure 103/50 Arterial Blood Pressure 104/50 Arterial Blood Pressure 103/49 Arterial Blood Pressure 105/50 Arterial Blood Pressure 101/50 Arterial Blood Pressure 111/53 Results CBC & Chem 7: 03/04/21 03:35 03/04/21 03:35 Labs: Abnormal Lab Results - Last 24 Hours (Table) 03/03/21 03/04/21 03/04/21 Range/Units 23:57 03:35 03:35 WBC 16.8 H (3.8-10.6) k/uL Neutrophils # (Manual) 14.90 H (1.3-7.7) k/uL Lymphocytes # (Manual) 0.34 L (1.0-4.8) k/uL Metamyelocytes # (Man) 1.01 H (0) k/uL D-Dimer (<0.60) mg/L FEU ABG pH (7.35-7.45) ABG pCO2 (35-45) mmHg ABG pO2 (83-108) mmHg ABG HCO3 (21-25) mmol/L ABG Total CO2 (19-24) mmol/L ABG O2 Saturation (94-97) % Sodium 130 L (137-145) mmol/L BUN 29 H (9-20) mg/dL Creatinine 1.38 H (0.66-1.25) mg/dL Glucose 165 H (74-99) mg/dL POC Glucose (mg/dL) 153 H (75-99) mg/dL Calcium 6.9 L (8.4-10.2) mg/dL Lactate Dehydrogenase 2624 H (313-618) U/L C-Reactive Protein 15.0 H (<1.0) mg/dL TSH (0.465-4.680) mIU/L 03/04/21 03/04/21 03/04/21 Range/Units 03:35 03:35 06:10 WBC (3.8-10.6) k/uL Neutrophils # (Manual) (1.3-7.7) k/uL Lymphocytes # (Manual) (1.0-4.8) k/uL Metamyelocytes # (Man) (0) k/uL D-Dimer 2.27 H (<0.60) mg/L FEU ABG pH (7.35-7.45) ABG pCO2 (35-45) mmHg ABG pO2 (83-108) mmHg ABG HCO3 (21-25) mmol/L ABG Total CO2 (19-24) mmol/L ABG O2 Saturation (94-97) % Sodium (137-145) mmol/L BUN (9-20) mg/dL Creatinine (0.66-1.25) mg/dL Glucose (74-99) mg/dL POC Glucose (mg/dL) 173 H (75-99) mg/dL Calcium (8.4-10.2) mg/dL Lactate Dehydrogenase (313-618) U/L C-Reactive Protein (<1.0) mg/dL TSH 0.190 L (0.465-4.680) mIU/L 03/04/21 03/04/21 03/04/21 Range/Units 07:52 11:08 12:55 WBC (3.8-10.6) k/uL Neutrophils # (Manual) (1.3-7.7) k/uL Lymphocytes # (Manual) (1.0-4.8) k/uL Metamyelocytes # (Man) (0) k/uL D-Dimer (<0.60) mg/L FEU ABG pH 7.08 L* 7.13 L* (7.35-7.45) ABG pCO2 75 H* 60 H (35-45) mmHg ABG pO2 55 L* 58 L* (83-108) mmHg ABG HCO3 20 L (21-25) mmol/L ABG Total CO2 25 H (19-24) mmol/L ABG O2 Saturation 86.5 L 89.5 L (94-97) % Sodium (137-145) mmol/L BUN (9-20) mg/dL Creatinine (0.66-1.25) mg/dL Glucose (74-99) mg/dL POC Glucose (mg/dL) 166 H (75-99) mg/dL Calcium (8.4-10.2) mg/dL Lactate Dehydrogenase (313-618) U/L C-Reactive Protein (<1.0) mg/dL TSH (0.465-4.680) mIU/L Microbiology - Last 24 Hours (Table) 03/02/21 11:51 Blood Culture - Preliminary Blood No Growth after 48 hours 03/02/21 11:34 Blood Culture - Preliminary Blood No Growth after 48 hours 03/02/21 20:25 Urine Culture - Final Urine,Clean Catch 03/02/21 11:34 Blood Culture Gram Stain - Preliminary Blood Blood Culture - Preliminary Staphylococcus epidermidis
== END 2021-03-05 03:38 | disposition expired | DRG 208 ==
LOC: EC 10:50 → 2SICU 15:20
PROVIDERS: ADMIT Internal Medicine; ATTEND Internal Medicine
PROC: 5A1945Z Respiratory Ventilation, 24-96 Consecutive Hours (ICD-10-PCS; principal; 2021-03-02)
PROC: 3E033XZ Introduction of Vasopressor into Peripheral Vein, Percutaneous Approach (ICD-10-PCS; 2021-03-02)
PROC: 0BH17EZ Insertion of Endotracheal Airway into Trachea, Via Natural or Artificial Opening (ICD-10-PCS; 2021-03-02)
PROC: 0DH67UZ Insertion of Feeding Device into Stomach, Via Natural or Artificial Opening (ICD-10-PCS; 2021-03-02)
PROC: 02H633Z Insertion of Infusion Device into Right Atrium, Percutaneous Approach (ICD-10-PCS; 2021-03-03)
PROC: 03HY32Z Insertion of Monitoring Device into Upper Artery, Percutaneous Approach (ICD-10-PCS; 2021-03-03)
PROC: 4A133B1 Monitoring of Arterial Pressure, Peripheral, Percutaneous Approach (ICD-10-PCS; 2021-03-03)
PROC: 4A133J1 Monitoring of Arterial Pulse, Peripheral, Percutaneous Approach (ICD-10-PCS; 2021-03-03)
PROC: 3E0333Z Introduction of Anti-inflammatory into Peripheral Vein, Percutaneous Approach (ICD-10-PCS; 2021-03-03)
DX: U07.1 COVID-19 (principal); G93.41 Metabolic encephalopathy; J12.82 Pneumonia due to coronavirus disease 2019; J80 Acute respiratory distress syndrome; E87.1 Hypo-osmolality and hyponatremia; R78.81 Bacteremia; E86.9 Volume depletion, unspecified; J98.01 Acute bronchospasm; Z87.891 Personal history of nicotine dependence; R77.8 Other specified abnormalities of plasma proteins; Z66 Do not resuscitate
CPT/HCPCS: 36415; 36600; 71045; 71046; 71275; 80048; 80053; 81001; 82533; 82728; 82805; 83605; 83615; 83735; 83880; 84145; 84439; 84443; 84484; 85025; 85379; 85610; 85730; 86140; 87040; 87086; 87636; 93005; 94002; 94003; 94640; 94660; 96360; 96361; 99291